=== PATIENT | female | born 1940 | race African-American/Black ===

== ENCOUNTER 2016-05-01 06:12 | Day surgery (SDC) | payer MEDICARE, OTHER ==
[~2016-05-01 06:12] MED LIST: KETOROLAC TROMETHAMINE 0.45% 4 DROP/0.4 ML DROPERETTE OD PRN
[2016-05-01] MEDS: CYCLOPENTOLATE 0.2%/PHENYLEPHRINE 1% OPH SOLN 2 ML OD PRN ×3 (06:49→07:09)
[2016-05-01] MEDS: BESIFLOXACIN HCL 0.6% OPH SUSP 5 ML BOTTLE OD PRN ×4 (06:49→08:08)
[2016-05-01] MEDS: TROPICAMIDE 1% OPH SOLN 3 ML OD PRN ×3 (06:49→07:09)
[2016-05-01] MEDS: TETRACAINE HCL 0.5% OPH SOLN 2 ML OD PRN ×3 (06:50→07:39)
[2016-05-01] MEDS ORDERED: LIDOCAINE 1% INJ-PF (10 MG/ML) 30 ML SDV ONE (07:10)
[2016-05-01] MEDS ORDERED: EPINEPHRINE INJ/PF 1 MG/1 ML AMPULE ONE (07:10)
[2016-05-01] MEDS ORDERED: CHONDR SU A NA/HYALUR INTRAOC KIT (SURGICARE) ONE (07:11)
[2016-05-01] MEDS ORDERED: MIDAZOLAM 2 MG/2 ML INJ ONE (07:20)
[2016-05-01] MEDS ORDERED: POVIDONE-IODINE 5% OPH PREP SOLN 30 ML ONE (07:51)
--- NOTE | 2016-05-02 07:18 | [facility] OPERATIVE REPORT E ---
[facility] Operative Report NAME: BRITTANY REYES AGE: 76Y DATE OF SURGERY: ROOM: PREOPERATIVE DIAGNOSIS: CATARACT, RIGHT EYE. POSTOPERATIVE DIAGNOSIS: CATARACT, RIGHT EYE. OPERATION: Cataract extraction with intraocular lens implant of the right eye. SURGEON: MIKEY REYNOLDS M.D. ANESTHESIA: Topical. PROCEDURE: After obtaining appropriate consent, the patient's right eye was prepped and draped in sterile fashion as well as the surgeon in a sterile manner and cataract surgery was started. First a paracentesis blade was used to make a small side-port incision. Viscoelastic was used to inflate the anterior chamber. Next a 2.4 mm incision was made with the paracentesis blade. A continuous capsulorrhexis incision was made using a cystotome and Utrata forceps. Following this hydrodissection was carried out to make the lens fully loose and mobile and it was rotated 90 degrees. Following this, a vsrrse-omg-ohktzlc technique was used to phacoemulsify the lens with a CDE of 7.82. The remaining cortex was removed with irrigation/aspiration. Provisc was instilled into the capsular bag to inflate the bag. A SN60WF, 22.5 SN60WF diopter lens was placed. The remaining viscoelastic material was removed with irrigation/aspiration. Following this, a 10-0 nylon suture was used to close the incision and it was found to be watertight. Vigamox was instilled in the eye and a protective shield was placed over the eye. The patient returned to the postoperative recovery in stable condition. DICTATING PHYSICIAN: MIKEY REYNOLDS M.D. [id number] PHY#: [id number] ID: [id number] JOB#: [id number] ACCT: [id number] cc:MIKEY REYNOLDS M.D. >
--- NOTE | 2016-05-02 07:23 | DISCHARGE SUMMARY E ---
Discharge Summary NAME: BRITTANY REYES : 1940 AGE: 76Y ADMITTED: 05/01/2016 DISCHARGED: 05/01/2016 FINAL DIAGNOSIS: Cataract right eye. This is a 76-year-old female who underwent cataract extraction of the right eye. She underwent surgery because she is having difficulty reading medicine bottles and newspaper. She should be on a regular diet. No bending at the waist, no heavy lifting. She should use her Besivance, Ilevro, and Durezol at 3 p.m. and 8 p.m. and sleep with a rigid shield. I will see her for her 1 day postoperative tomorrow. DICTATING PHYSICIAN: MIKEY REYNOLDS M.D. [id number] PHY#: [id number] ID: [id number] JOB#: [id number] ACCT: [id number] cc:MIKEY REYNOLDS M.D. >
== END 2016-05-01 08:52 | disposition home or self-care (01) ==
LOC: SC 06:12
PROVIDERS: ATTEND Internal Medicine
PROC: 08RJ3JZ Replacement of Right Lens with Synthetic Substitute, Percutaneous Approach (ICD-10-PCS; principal; 2016-05-01 07:30)
DX: H25.13 Age-related nuclear cataract, bilateral (principal); I10 Essential (primary) hypertension; E11.9 Type 2 diabetes mellitus without complications; I48.91 Unspecified atrial fibrillation; Z79.899 Other long term (current) drug therapy; Z79.84 Long term (current) use of oral hypoglycemic drugs; Z86.711 Personal history of pulmonary embolism
CPT/HCPCS: 66984; 82962; V2632; J2250; J3490 ×3; A9270; J0171; 142

== ENCOUNTER 2016-05-25 00:24 | Emergency (ER) | payer MEDICARE, OTHER ==
[2016-05-25] MEDS ORDERED: TRAMADOL HCL 50 MG TABLET PO ONE (03:11)
--- NOTE | 2016-05-25 03:43 | ER Document Report ---
ED General - General Chief Complaint: Wrist Pain Stated Complaint: RIGHT WRIST PAIN Notes: Patient seen 76 old female presents with complaint of right wrist pain and hand pain. She says starts night. No recent injuries. 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 She's currently not on blood thinners. She's had no discoloration of her hand. No swelling. No redness. Over the last 2 days she did recently start having physical therapy which does involve her hands. She has home health that comes ti her house and does do therapy with her. No chest pain. No difficulty breathing. TRAVEL OUTSIDE OF THE [place] IN LAST 30 DAYS: No - Related Data Allergies/Adverse Reactions: No Known Allergies Allergy (Verified 05/25/16 00:51) Past Medical History - Social History Smoking Status: Unknown if Ever Smoked Frequency of alcohol use: None Drug Abuse: None Family History: Reviewed & Not Pertinent - Past Medical History Cardiac Medical History: Reports: Hx Hypertension Denies: Hx Heart Attack Pulmonary Medical History: Denies: Hx Asthma Neurological Medical History: Denies: Hx Cerebrovascular Accident, Hx Seizures Renal/ Medical History: Denies: Hx Peritoneal Dialysis GI Medical History: Denies: Hx Hepatitis, Hx Hiatal Hernia, Hx Ulcer Infectious Medical History: Denies: Hx Hepatitis Past Surgical History: Reports: Hx Hysterectomy. Denies: Hx Mastectomy, Hx Open Heart Surgery, Hx Pacemaker Review of Systems - Review of Systems Notes: My Normal Review Basic REVIEW OF SYSTEMS: CONSTITUTIONAL : Denies fever, chills, or sweats. Denies recent illness. EENT: Denies eye, ear, throat, or mouth pain or symptoms. Denies nasal or sinus congestion. CARDIOVASCULAR: Denies chest pain. RESPIRATORY: Denies cough, cold, or chest congestion. Denies shortness of breath, difficulty breathing, or wheezing. GASTROINTESTINAL: Denies abdominal pain. Denies nausea, vomiting, or diarrhea. Denies constipation. Last BM: GENITOURINARY: Denies difficulty urinating, painful urination, burning, frequency, or blood in urine. MUSCULOSKELETAL: Pain of her right wrist and hand. SKIN: Denies rash or skin lesions. NEUROLOGICAL: Denies altered mental status or loss of consciousness. Denies weakness or paralysis or loss of use of either side. Denies problems with gait or speech. Denies sensory or motor loss. PSYCHIATRIC: Denies anxiety or stress or depression. ALL OTHER SYSTEMS REVIEWED AND NEGATIVE. Physical Exam - Vital signs Vitals: Temp Pulse Resp BP Pulse Ox 98.2 F 69 16 145/56 H 100 05/25/16 00:51 05/25/16 00:51 05/25/16 00:51 05/25/16 00:51 05/25/16 00:51 - Notes Notes: General Appearance: Well nourished, alert, cooperative, no acute distress, mild to moderate obvious discomfort. Vitals: reviewed, See vital signs table. Head: no swelling or tenderness to the head Eyes: PERRL, EOMI, Conjuctiva clear Neck: Supple, no neck tenderness, No thyromegaly Lungs: No wheezing, No rales, No rhonci, No accessory muscle use, good air exchange bilaterally. Heart: Normal rate, Regular rythm, No murmur, no rub Extremities: strength 5/5 in all extremities, good pulses in all extremities, no swelling or redness to the wrist or hand. Patient does have pain to palpation of the right wrist and hand. She has full range of motion of the right wrist but does have some pain when moving the right wrist. It is not stiff. She has no pain over the elbow or shoulder or arm. This no swelling or edema to extremity. She has good pulses. Good cap refill. Good distal sensation in all fingers., no edema. Skin: warm, dry, appropriate color, no rash Neuro: speech clear, oriented x 3, normal affect, responds appropriately to questions. Course - Re-evaluation Re-evalutation: 05/25/16 06:01 The pain medicine did help the patient's pain some. I will place her in a splint. We'll discharge her home with some pain medication. Will have her follow closely with her primary care doctor for reevaluation. This no redness or swelling or signs of infection on exam. She is good pulses and good capillary refill. She has no swelling or edema to suggest a type of arterial venous occlusion. The pain is only in her wrist and hand. I do not suspect a DVT of the upper extremity based on location of her pain and exacerbating factors to the pain including palpation and range of motion of the wrist. I suspect the pain may be related to the fact that she just recently started doing physical therapy which included their pain involving her hand and wrist. Patient encouraged return to ER immediately if she has any redness or swelling to the hand and wrist, fevers, or she has any further concerns. Patient agrees with plan and will be discharged home. Dictation of this chart was performed using voice recognition software; therefore, there may be some unintended grammatical errors. - Vital Signs Vital signs: Temp Pulse Resp BP Pulse Ox 98.2 F 69 16 145/56 H 100 05/25/16 00:51 05/25/16 00:51 05/25/16 00:51 05/25/16 00:51 05/25/16 00:51 Discharge - Discharge Clinical Impression: Wrist pain Qualifiers: Laterality: right Qualified Code(s): M25.531 - Pain in right wrist Hand pain Qualifiers: Laterality: right Qualified Code(s): M79.641 - Pain in right hand Condition: Good Disposition: HOME, SELF-CARE Instructions: Oral Narcotic Medication ([facility]) Additional Instructions: Please continue to wear the splint on your wrist. Please take the pain medicine to help with the pain. Do not drive when taking the pain medicine. Please take a week break from any physical therapy on your wrist. Please follow up with your doctor in 2-3 days to be revaluated. Please return to the ER immediately if you develop worsening pain, redness to the wrist, or swelling to the wrist. Prescriptions: Tramadol HCl [Ultram 50 mg Tablet] 50 mg PO Q6HP PRN #14 tablet PRN Reason: Referrals: KELSIE BAUM MD [Primary Care Provider] - 05/26/16
[2016-05-25 06:58] VITALS: BP 140/51
== END 2016-05-25 05:10 | disposition home or self-care (01) ==
LOC: ER 00:24
DX: M25.531 Pain in right wrist (principal); M79.641 Pain in right hand
CPT/HCPCS: 99283; 73130; 73110; L3984; A9270

== ENCOUNTER 2016-05-29 07:10 | Day surgery (SDC) | payer MEDICARE, OTHER ==
[2016-05-29] MEDS: CYCLOPENTOLATE 0.2%/PHENYLEPHRINE 1% OPH SOLN 2 ML OS PRN ×3 (07:52→08:13)
[2016-05-29] MEDS: BESIFLOXACIN HCL 0.6% OPH SUSP 5 ML BOTTLE OS PRN ×4 (07:52→08:39)
[2016-05-29] MEDS: TROPICAMIDE 1% OPH SOLN 3 ML OS PRN ×3 (07:52→08:13)
[2016-05-29] MEDS: TETRACAINE HCL 0.5% OPH SOLN 2 ML OS PRN ×3 (07:53→08:28)
[2016-05-29] MEDS: KETOROLAC TROMETHAMINE 0.45% 4 DROP/0.4 ML DROPERETTE OS PRN ×2 (07:53→09:37)
[2016-05-29] MEDS ORDERED: MIDAZOLAM 2 MG/2 ML INJ ONE (08:30)
[2016-05-29] MEDS ORDERED: ONDANSETRON HCL INJ/PF 4 MG/2 ML SDV ONE (08:30)
[2016-05-29] MEDS: LIDOCAINE 1% INJ-PF (10 MG/ML) 30 ML SDV ONE ×2 (08:39)
[2016-05-29] MEDS: CHONDR SU A NA/HYALUR INTRAOC KIT (SURGICARE) ONE ×2 (08:39)
[2016-05-29] MEDS: EPINEPHRINE INJ/PF 1 MG/1 ML AMPULE ONE ×2 (08:39)
--- NOTE | 2016-05-29 20:53 | [facility] DISCHARGE SUMMARY E ---
[facility] Discharge Summary NAME: BRITTANY REYES AGE: 76Y ADMITTED: 05/29/2016 DISCHARGED: 05/29/2016 HISTORY OF PRESENT ILLNESS AND HOSPITAL COURSE: This is a 76-year-old female who underwent cataract extraction of the left eye. DIAGNOSIS: Cataract, left eye. HOSPITAL COURSE: She underwent surgery because she was having difficulty reading small print like medicine bottles. DISCHARGE INSTRUCTIONS: 1. She needs to be on a regular diet. 2. No bending her waist and no heavy lifting. 3. She should sleep with a rigid shield. 4. I will see her for her one-day postoperative tomorrow. DICTATING PHYSICIAN: MIKYE REYNOLDS M.D. [id number] PHY#: [id number] ID: [id number] JOB#: [id number] ACCT: [id number] cc:MIKEY REYNOLDS M.D. >
--- NOTE | 2016-05-29 20:54 | [facility] OPERATIVE REPORT E ---
[facility] Operative Report NAME: BRITTANY REYES AGE: 76Y DATE OF SURGERY: 05/29/2016 ROOM: PREOPERATIVE DIAGNOSIS: Cataract, left eye. POSTOPERATIVE DIAGNOSIS: Cataract, left eye. OPERATION: Cataract extraction with intraocular lens implant of the left eye. SURGEON: MIKEY REYNOLDS M.D. ANESTHESIA: Topical. PROCEDURE: After obtaining appropriate consent, the patient's left eye was prepped and draped in sterile fashion as well as the surgeon in a sterile manner and cataract surgery was started. First a paracentesis blade was used to make a small side-port incision. Viscoelastic was used to inflate the anterior chamber. Next a 2.4 mm incision was made with the paracentesis blade. A continuous capsulorrhexis incision was made using a cystotome and Utrata forceps. Following this hydrodissection was carried out to make the lens fully loose and mobile and it was rotated 90 degrees. Following this, a dfldem-gnx-bgzybou technique was used to phacoemulsify the lens with a CDE of 7.86. The remaining cortex was removed with irrigation/aspiration. Provisc was instilled into the capsular bag to inflate the bag. A SN60WF, 21.0 diopter lens was placed. The remaining viscoelastic material was removed with irrigation/aspiration. Following this, a 10-0 nylon suture was used to close the incision and it was found to be watertight. Vigamox was instilled in the eye and a protective shield was placed over the eye. The patient returned to the postoperative recovery in stable condition. DICTATING PHYSICIAN: MIKEY REYNOLDS M.D. [id number] PHY#: [id number] ID: [id number] JOB#: [id number] ACCT: [id number] cc:MIKEY REYNOLDS M.D. >
== END 2016-05-29 09:42 | disposition home or self-care (01) ==
LOC: SC 07:10
PROVIDERS: ATTEND Internal Medicine
PROC: 08RJ3JZ Replacement of Right Lens with Synthetic Substitute, Percutaneous Approach (ICD-10-PCS; principal; 2016-05-29 08:30)
DX: H25.12 Age-related nuclear cataract, left eye (principal); Z96.1 Presence of intraocular lens; I10 Essential (primary) hypertension; E11.9 Type 2 diabetes mellitus without complications; I48.91 Unspecified atrial fibrillation; Z79.899 Other long term (current) drug therapy
CPT/HCPCS: 66984; 82962; V2632; J2250; J3490 ×2; A9270; J0171; J2405; 142

== ENCOUNTER 2016-11-16 21:11 | Emergency (ER) | payer MEDICARE, OTHER ==
--- NOTE | 2016-11-16 22:29 | ER Document Report ---
ED GI/ - General Chief Complaint: Constipation Stated Complaint: ANAL BLEEDING Time Seen by Provider: 11/16/16 22:08 Notes: Patient is a 76-year-old female who comes emergency department for chief complaint of constipation. She states that 2 days ago she had a hard bowel movement with small balls. She states that she used to glycerin suppositories during the day today but has not had a bowel movement. She states she was straining a little bit on the toilet and had a little bit of blood come out, she has had no bleeding since. She is on Pradaxa. She denies abdominal pain, vomiting, fever. TRAVEL OUTSIDE OF THE [place] IN LAST 30 DAYS: No - Related Data Allergies/Adverse Reactions: No Known Allergies Allergy (Verified 11/16/16 21:36) Past Medical History - General Information source: Patient - Social History Smoking Status: Never Smoker Frequency of alcohol use: None Drug Abuse: None Lives with: Family Family History: Reviewed & Not Pertinent Patient has suicidal ideation: No Patient has homicidal ideation: No - Past Medical History Cardiac Medical History: Reports: Hx Hypertension Denies: Hx Heart Attack Pulmonary Medical History: Denies: Hx Asthma Neurological Medical History: Denies: Hx Cerebrovascular Accident, Hx Seizures Renal/ Medical History: Denies: Hx Peritoneal Dialysis GI Medical History: Denies: Hx Hepatitis, Hx Hiatal Hernia, Hx Ulcer Infectious Medical History: Denies: Hx Hepatitis Past Surgical History: Reports: Hx Hysterectomy. Denies: Hx Mastectomy, Hx Open Heart Surgery, Hx Pacemaker Review of Systems - Review of Systems Constitutional: No symptoms reported EENT: No symptoms reported Cardiovascular: No symptoms reported Respiratory: No symptoms reported Gastrointestinal: See HPI Genitourinary: No symptoms reported Female Genitourinary: No symptoms reported Musculoskeletal: No symptoms reported Skin: No symptoms reported Hematologic/Lymphatic: No symptoms reported Neurological/Psychological: No symptoms reported Physical Exam - Vital signs Vitals: Temp Pulse Resp BP Pulse Ox 98.6 F 73 16 151/66 H 98 11/16/16 21:31 11/16/16 21:31 11/16/16 21:31 11/16/16 21:31 11/16/16 21:31 Interpretation: Normal - General General appearance: Appears well, Alert In distress: None - HEENT Head: Normocephalic, Atraumatic Eyes: Normal Pupils: PERRL - Respiratory Respiratory status: No respiratory distress Chest status: Nontender Breath sounds: Normal Chest palpation: Normal - Cardiovascular Rhythm: Regular. No: Tachycardia Heart sounds: Normal auscultation, S1 appreciated, S2 appreciated Murmur: No - Abdominal Inspection: Normal Distension: No distension Bowel sounds: Normal Tenderness: Nontender. No: Tender, Guarding Organomegaly: No organomegaly - Rectal Stool: No: Black, Bloody Hemorrhoids: None Notes: Christiane KRUGER present at bedside during examination and disimpaction of the fecal impaction noted on examination. - Back Back: Normal, Nontender - Extremities General upper extremity: Normal inspection, Nontender, Normal color, Normal ROM , Normal temperature General lower extremity: Normal inspection, Nontender, Normal color, Normal ROM , Normal temperature, Normal weight bearing. No: Lele's sign - Neurological Neuro grossly intact: Yes Cognition: Normal Orientation: AAOx4 [place] Coma Scale Eye Opening: Spontaneous [place] Coma Scale Verbal: Oriented [place] Coma Scale Motor: Obeys Commands [place] Coma Scale Total: 15 Speech: Normal Motor strength normal: LUE, RUE, LLE, RLE Sensory: Normal - Psychological Associated symptoms: Normal affect, Normal mood - Skin Skin Temperature: Warm Skin Moisture: Dry Skin Color: Normal Course - Re-evaluation Re-evalutation: Digital examination of the rectum performed, patient with a fecal impaction obvious on exam. No bleeding noted, on patient's request and compliance patient was digitally disimpacted of the large fecal ball that was preventing her bowel movements. A large ball of stool was removed. I offered to perform an x-ray to see if patient needed additional interventions, she declined. She is very grateful for this. She states she has had this once before and had the same solution. She states she has a stool softener she will be taking at home, she states she will follow-up with her primary return for any worsening symptoms. - Vital Signs Vital signs: Temp Pulse Resp BP Pulse Ox 98 F 68 16 136/57 H 100 11/16/16 23:01 11/16/16 23:01 11/16/16 23:01 11/16/16 23:01 11/16/16 23:01 Discharge - Discharge Clinical Impression: Fecal impaction Condition: Stable Disposition: HOME, SELF-CARE Additional Instructions: Please take your stool softener daily, drink plenty of fluids, increase fiber in your food. Follow-up with your primary care provider. Return to the emergency department immediately if he develop any concerning symptoms including heavy bleeding, abdominal pain, vomiting, fever, etc. Referrals: STACEY DICKEY, [Primary Care Provider] - Follow up as needed
[2016-11-16 23:03] VITALS: BP 136/57
== END 2016-11-16 23:02 | disposition home or self-care (01) ==
LOC: ER 21:11
DX: K56.41 Fecal impaction (principal); I10 Essential (primary) hypertension
CPT/HCPCS: 99283

== ENCOUNTER 2016-11-17 12:05 | Emergency (ER) | payer MEDICARE, OTHER ==
[2016-11-17] MEDS ORDERED: LIDOCAINE 2% JELLY 30 ML TUBE TOP ONE (12:33)
--- NOTE | 2016-11-17 12:35 | ER Document Report ---
ED Medical Screen (RME) - General Chief Complaint: Constipation Stated Complaint: BOWEL ISSUES Time Seen by Provider: 11/17/16 12:21 Mode of Arrival: Ambulatory Information source: Patient Notes: 76-year-old female presents with complaints of constipation , rectal bleeding post impaction reduction last night I have greeted and performed a rapid initial assessment of this patient. A comprehensive ED assessment and evaluation of the patient, analysis of test results and completion of the medical decision making process will be conducted by additional ED providers. PHYSICAL EXAMINATION: GENERAL: Well-appearing, well-nourished and in no acute distress. HEAD: Atraumatic, normocephalic. EYES: Pupils equal round extraocular movements intact, conjunctiva are normal. ENT: Nares patent NECK: Normal range of motion LUNGS: No respiratory distress Musculoskeletal: Normal range of motion NEUROLOGICAL: Normal speech, normal gait. PSYCH: Normal mood, normal affect. SKIN: Warm, Dry, normal turgor, no rashes or lesions noted. TRAVEL OUTSIDE OF THE [place] IN LAST 30 DAYS: No - Related Data Allergies/Adverse Reactions: No Known Allergies Allergy (Verified 11/17/16 12:22) Past Medical History - Social History Chew tobacco use (# tins/day): No Frequency of alcohol use: None Drug Abuse: None - Past Medical History Cardiac Medical History: Reports: Hx Hypertension Denies: Hx Heart Attack Pulmonary Medical History: Denies: Hx Asthma Neurological Medical History: Denies: Hx Cerebrovascular Accident, Hx Seizures Endocrine Medical History: Reports: Hx Diabetes Mellitus Type 1 Renal/ Medical History: Denies: Hx Peritoneal Dialysis GI Medical History: Denies: Hx Hepatitis, Hx Hiatal Hernia, Hx Ulcer Infectious Medical History: Denies: Hx Hepatitis Past Surgical History: Reports: Hx Hysterectomy. Denies: Hx Mastectomy, Hx Open Heart Surgery, Hx Pacemaker Physical Exam - Vital signs Vitals: Temp Pulse Resp BP Pulse Ox 98.5 F 103 H 18 117/73 100 11/17/16 12:08 11/17/16 12:08 11/17/16 12:08 11/17/16 12:08 11/17/16 12:08 Course - Vital Signs Vital signs: Temp Pulse Resp BP Pulse Ox 98.5 F 103 H 18 117/73 100 11/17/16 12:08 11/17/16 12:08 11/17/16 12:08 11/17/16 12:08 11/17/16 12:08
--- NOTE | 2016-11-17 13:15 | ER Document Report ---
ED GI/ - General Mode of Arrival: Ambulatory Information source: Patient TRAVEL OUTSIDE OF THE [place] IN LAST 30 DAYS: No - HPI Patient complains to provider of: Other - constipation Onset: Other - x2 days Timing/Duration: Persistent - General Chief Complaint: Constipation Stated Complaint: BOWEL ISSUES Time Seen by Provider: 11/17/16 12:21 Notes: Patient is a 76-year-old female who presents to the emergency department today with complaints of constipation for the last 2 days. Patient was seen here yesterday for rectal bleeding and constipation. Patient had a manual disimpaction which relieved her symptoms somewhat. Patient states that when she got home she was able to pass "a little bit of stool" but still feels like there is a large amount of stool "right there". Patient states she has tried multiple stool softeners at home with minimal relief. Patient denies any vomiting. (ALEE [place]) - Related Data Allergies/Adverse Reactions: No Known Allergies Allergy (Verified 11/17/16 12:22) Past Medical History - General Information source: Patient - Social History Smoking Status: Never Smoker Cigarette use (# per day): No Chew tobacco use (# tins/day): No Frequency of alcohol use: None Drug Abuse: None Lives with: Family Family History: Reviewed & Not Pertinent - Past Medical History Cardiac Medical History: Reports: Hx Hypertension Endocrine Medical History: Reports: Hx Diabetes Mellitus Type 1 Past Surgical History: Reports: Hx Hysterectomy Review of Systems - Review of Systems Constitutional: No symptoms reported EENT: No symptoms reported Cardiovascular: No symptoms reported Respiratory: No symptoms reported Gastrointestinal: See HPI, Constipation. denies: Vomiting Genitourinary: No symptoms reported Female Genitourinary: No symptoms reported Musculoskeletal: No symptoms reported Skin: No symptoms reported Hematologic/Lymphatic: No symptoms reported Neurological/Psychological: No symptoms reported -: Yes All other systems reviewed and negative Physical Exam - Vital signs Vitals: Temp Pulse Resp BP Pulse Ox 98.5 F 103 H 18 117/73 100 11/17/16 12:08 11/17/16 12:08 11/17/16 12:08 11/17/16 12:08 11/17/16 12:08 - Notes Notes: PHYSICAL EXAM GENERAL: Alert, interacts well. Appears mildly uncomfortable. HEAD: Normocephalic, atraumatic. EYES: Pupils equal, round, and reactive to light. Extraocular movements intact. ENT: Oral mucosa moist, tongue midline. NECK: Full range of motion. Supple. Trachea midline. LUNGS: No respiratory distress. ABDOMEN: Non-distended. RECTAL: Large amount of semi-firm stool in rectal vault. No gross blood. EXTREMITIES: Moves all 4 extremities spontaneously. No cyanosis. NEUROLOGICAL: Alert and oriented x3. Normal speech. PSYCH: Normal affect, normal mood. SKIN: Warm, dry, normal turgor. No rashes or lesions noted. (ALEE [place]) Course - Re-evaluation Re-evalutation: 11/17/16 14:25 After enema patient had a large bowel movement. Feeling much better. Still has some rectal pain. Discharged home with lidocaine jelly. Patient will apply this topically. Started on MiraLAX to prevent re-constipation. Discharged home. 11/17/16 14:27 (KVNG CULP) - Vital Signs Vital signs: Temp Pulse Resp BP Pulse Ox 98.2 F 78 15 136/74 H 98 11/17/16 15:58 11/17/16 15:58 11/17/16 15:58 11/17/16 15:58 11/17/16 15:58 Discharge - Discharge Clinical Impression: Fecal impaction, Rectal pain Constipation Qualifiers: Constipation type: unspecified constipation type Qualified Code(s): K59.00 - Constipation, unspecified Condition: Stable Disposition: HOME, SELF-CARE Additional Instructions: I expect your rectal pain to improve in the next few days. You may continue to apply the lidocaine jelly for pain relief. It may also help to use witch jose guadalupe wipes. Please dissolve 1 scoop of MiraLAX in a glass of water once a day to treat constipation. You may increase to twice a day if needed to create soft bowel movements and you may decrease to every other day if you develop diarrhea. Scribe Attestation: 11/17/16 16:10 I personally performed the services described in the documentation, reviewed and edited the documentation which was dictated to the scribe in my presence, and it accurately records my words and actions. (KVNG CULP) Scribe Documentation - Scribe Written by Scrlesliee:: Alee Austin, Johnny, 11/17/2016 [id number] acting as scribe for :: Stephanie
[2016-11-17] MEDS ORDERED: MAGNESIUM CITRATE 296 ML BOTTLE PO ONE (13:18)
[2016-11-17] MEDS ORDERED: MINERAL OIL ENEMA 133 ML PR ONE (13:18)
--- NOTE | 2016-11-17 13:21 | RADIOLOGY REPORT (SQ) ---
EXAM DESCRIPTION: ACUTE ABDOMEN SERIES COMPLETED DATE/TIME: 11/17/2016 12:45 pm REASON FOR STUDY: constipation COMPARISON: None. NUMBER OF VIEWS: Three views. TECHNIQUE: Frontal chest, supine abdomen and upright abdomen radiographic images acquired. LIMITATIONS: None. FINDINGS: CHEST: Bandlike atelectasis at both lung bases. No fluffy alveolar infiltrates worrisome for edema or pneumonia. No pleural effusion. No pneumothorax. FREE AIR: None. No abnormal gas collections. BOWEL GAS PATTERN: Nonobstructive pattern. No dilated loops or air fluid levels. Small amount of sto ol in the rectosigmoid and descending colon. CALCIFICATIONS: No suspicious calcifications. HARDWARE: None in the abdomen. SOFT TISSUES: No gross mass or suggestion of organomegaly. BONES: No acute fracture. No worrisome bone lesions. OTHER: No other significant finding. IMPRESSION: Bibasilar atelectasis Grossly nonobstructive bowel gas pattern. TECHNICAL DOCUMENTATION: JOB ID: [id number]- All Rights Reserved
--- NOTE | 2016-11-17 15:35 | RADIOLOGY REPORT (SQ) ---
EXAM DESCRIPTION: KUB/ABDOMEN (SINGLE VIEW)/ portable COMPLETED DATE/TIME: 11/17/2016 2:36 pm REASON FOR STUDY: post enema, check for change in stool pattern COMPARISON: 11/17/2016, 1252 hours NUMBER OF VIEWS: One view. TECHNIQUE: Supine radiographic image of the abdomen acquired. LIMITATIONS: None. FINDINGS: BOWEL GAS PATTERN: Nonobstructive bowel pattern. Some decrease air and fecal material lef t colon since prior study. CALCIFICATIONS: No suspicious calcifications. SOFT TISSUES: Soft tissue density anatomic pelvis. Consider distended urinary bladder or other organ enlargement. HARDWARE: None in the abdomen. BONES: No acute fracture. No worrisome bone lesions. OTHER: No other significant finding. IMPRESSION: Nonobstructive bowel pattern. Decrease air and fecal material left colon since prior st udy. TECHNICAL DOCUMENTATION: JOB ID: [id number] [id number]- All Rights Reserved
[2016-11-17 15:59] VITALS: BP 136/74
== END 2016-11-17 15:59 | disposition home or self-care (01) ==
LOC: ER 12:05
DX: K56.41 Fecal impaction (principal); K62.89 Other specified diseases of anus and rectum; K59.00 Constipation, unspecified
CPT/HCPCS: 99283; 74022; 74000; J3490 ×2

== ENCOUNTER 2017-02-13 14:36 | Emergency (ER) | payer MEDICARE, OTHER ==
[2017-02-13] MEDS ORDERED: CEPHALEXIN 500 MG CAPSULE PO ONE (15:12)
--- NOTE | 2017-02-13 15:32 | ER Document Report ---
ED Medical Screen (RME) - General Mode of Arrival: Ambulatory Information source: Patient TRAVEL OUTSIDE OF THE [place] IN LAST 30 DAYS: No <DONNA BATEMAN - Last Filed: 02/13/17 15:52> <KVNG CULP - Last Filed: 02/13/17 16:33> - General Chief Complaint: Swelling of Lower Extremity Stated Complaint: LEFT FOOT PAIN Time Seen by Provider: 02/13/17 15:05 Notes: Patient is a 76 year old female presenting to the emergency department complaining of swelling in the lower left leg onset 2 days ago. Patient states that she has a similar bump on her right arm. Patient states that she has a history of blood clots. I have greeted and performed a rapid initial assessment of this patient. A comprehensive ED assessment and evaluation of the patient, analysis of test results and completion of the medical decision making process will be conducted by additional ED providers. (DONNA BATEMAN) - Related Data Allergies/Adverse Reactions: No Known Allergies Allergy (Verified 02/13/17 14:37) Past Medical History - Social History Chew tobacco use (# tins/day): No Frequency of alcohol use: None Drug Abuse: None - Past Medical History Cardiac Medical History: Reports: Hx Hypertension Denies: Hx Heart Attack Pulmonary Medical History: Denies: Hx Asthma Neurological Medical History: Denies: Hx Cerebrovascular Accident, Hx Seizures Endocrine Medical History: Reports: Hx Diabetes Mellitus Type 1 Renal/ Medical History: Denies: Hx Peritoneal Dialysis GI Medical History: Denies: Hx Hepatitis, Hx Hiatal Hernia, Hx Ulcer Infectious Medical History: Denies: Hx Hepatitis Past Surgical History: Reports: Hx Hysterectomy. Denies: Hx Mastectomy, Hx Open Heart Surgery, Hx Pacemaker <DONNA BATEMAN - Last Filed: 02/13/17 15:52> Physical Exam <DONNA BATEMAN - Last Filed: 02/13/17 15:52> <KVNG CULP - Last Filed: 02/13/17 16:33> - Vital signs Vitals: Temp Pulse Resp BP Pulse Ox 98.0 F 82 18 143/66 H 100 02/13/17 14:42 02/13/17 14:42 02/13/17 14:42 02/13/17 14:42 02/13/17 14:42 - Notes Notes: GENERAL: Alert, interacts well. No acute distress. LUNGS: Clear to auscultation bilaterally, no wheezes, rales, or rhonchi. No respiratory distress. HEART: Regular rate and rhythm. No murmurs, gallops, or rubs. EXTREMITIES: Left leg has an area of erythema that is 10cm x 4cm. Left ankle is grossly swollen, not painful to palpation. (DONNA BATEMAN) Course - Laboratory Result Diagrams: 02/13/17 16:15 02/13/17 16:15 <KVNG CULP - Last Filed: 02/13/17 16:33> - Vital Signs Vital signs: Temp Pulse Resp BP Pulse Ox 98.0 F 82 18 143/66 H 100 02/13/17 14:42 02/13/17 14:42 02/13/17 14:42 02/13/17 14:42 02/13/17 14:42 Scribe Documentation - Scribe Written by Scribe:: Johnny Bernardo, 02/13/2017 15:54 acting as scribe for :: Stephanie <DONNA BATEMAN - Last Filed: 02/13/17 15:52>
[2017-02-13 16:33] LABS: ABSOLUTE EOSINOPHILS # (AUTO) 0.3 10^3/uL (0.0-0.6); ABSOLUTE LYMPHOCYTES (AUTO) 1.9 10^3/uL (0.5-4.7); ABSOLUTE MONOCYTES (AUTO) 0.4 10^3/uL (0.1-1.4); ABSOLUTE NEUT (AUTO) 2.8 10^3/uL (1.7-8.2); BASOPHILS % (AUTO) 0.3 % (0-2); EOSINOPHILS % (AUTO) 5.3 % (0-6); HEMATOCRIT 36.1 % (36.0-47.0); HEMOGLOBIN 11.6 g/dL (12.0-15.5); HGB HCT DIFFERENCE -1.3; LYMPHOCYTES % (AUTO) 34.8 % (13-45); MEAN CORPUSCULAR HEMOGLOBIN 26.4 pg (27.0-33.4); MEAN CORPUSCULAR HGB CONC 32.1 g/dL (32.0-36.0); MEAN CORPUSCULAR VOLUME 82 fl (80-97); MONOCYTES % (AUTO) 7.6 % (3-13); RED BLOOD COUNT 4.39 10^6/uL (3.72-5.28); RED CELL DISTRIBUTION WIDTH 12.8 % (11.5-14.0); WHITE BLOOD COUNT 5.3 10^3/uL (4.0-10.5)
[2017-02-13 16:39] LABS: PROTHROMBIN TIME 16.1 SEC (11.4-15.4)
[2017-02-13 16:50] LABS: ALANINE AMINOTRANSFERASE 39 U/L (9-52); ALBUMIN 4.6 g/dL (3.5-5.0); ALKALINE PHOSPHATASE 118 U/L (38-126); ANION GAP 13 (5-19); ASPARTATE AMINO TRANSFERASE 27 U/L (14-36); BILIRUBIN,DIRECT 0.2 mg/dL (0.0-0.4); BILIRUBIN,TOTAL 0.4 mg/dL (0.2-1.3); BLOOD UREA NITROGEN 16 mg/dL (7-20); CALCIUM 10.5 mg/dL (8.4-10.2); CARBON DIOXIDE 27 mmol/L (22-30); CHLORIDE 108 mmol/L (98-107); CREATININE RESULT 0.83 mg/dL (0.52-1.25); GLUCOSE 85 mg/dL (75-110); SODIUM 148.1 mmol/L (137-145); TOTAL PROTEIN 7.6 g/dL (6.3-8.2)
--- NOTE | 2017-02-13 16:51 | ER Document Report ---
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 She said that the rashes are decreasing in size, but they are still itchy. She has started a new detergent. She denies increased swelling, numbness, tingling, difficulty walking, fevers, coughing, difficulty swallowing, wheezing, nausea, vomiting, abdominal pain, recent travel or any other rashes. TRAVEL OUTSIDE OF THE [place] IN LAST 30 DAYS: No - Related Data Allergies/Adverse Reactions: No Known Allergies Allergy (Verified 02/13/17 14:37) Past Medical History - General Information source: Patient - Social History Smoking Status: Never Smoker Chew tobacco use (# tins/day): No Frequency of alcohol use: None Drug Abuse: None Family History: Reviewed & Not Pertinent Patient has suicidal ideation: No Patient has homicidal ideation: No - Past Medical History Cardiac Medical History: Reports: Hx Hypertension Denies: Hx Heart Attack Pulmonary Medical History: Denies: Hx Asthma Neurological Medical History: Denies: Hx Cerebrovascular Accident, Hx Seizures Endocrine Medical History: Reports: Hx Diabetes Mellitus Type 1 Renal/ Medical History: Denies: Hx Peritoneal Dialysis GI Medical History: Denies: Hx Hepatitis, Hx Hiatal Hernia, Hx Ulcer Infectious Medical History: Denies: Hx Hepatitis Past Surgical History: Reports: Hx Hysterectomy. Denies: Hx Mastectomy, Hx Open Heart Surgery, Hx Pacemaker Review of Systems - Review of Systems Notes: REVIEW OF SYSTEMS: CONSTITUTIONAL: -fevers, -chills EENT: -eye pain, -difficulty swallowing, -nasal congestion CARDIOVASCULAR: -chest pain, -syncope. RESPIRATORY: -cough, -SOB GASTROINTESTINAL: -abdominal pain, -nausea, -vomiting, -diarrhea GENITOURINARY: -dysuria, -hematuria MUSCULOSKELETAL: -back pain, -neck pain SKIN: +itchy rash. HEMATOLOGIC: -easy bruising or bleeding. LYMPHATIC: -swollen, enlarged glands. NEUROLOGICAL: -altered mental status or loss of consciousness, -headache, - neurologic symptoms PSYCHIATRIC: -anxiety, -depression. ALL OTHER SYSTEMS REVIEWED AND NEGATIVE. Physical Exam - Vital signs Vitals: Temp Pulse Resp BP Pulse Ox 98.0 F 82 18 143/66 H 100 02/13/17 14:42 02/13/17 14:42 02/13/17 14:42 02/13/17 14:42 02/13/17 14:42 - Notes Notes: PHYSICAL EXAMINATION: GENERAL: Well-appearing, well-nourished and in no acute distress. HEAD: Atraumatic, normocephalic. EYES: Pupils equal round and reactive to light, extraocular movements intact, sclera anicteric, conjunctiva are normal. ENT: nares patent, oropharynx clear without exudates. Moist mucous membranes. NECK: Normal range of motion, supple without lymphadenopathy LUNGS: Breath sounds clear to auscultation bilaterally and equal. No wheezes rales or rhonchi. HEART: Regular rate and rhythm without murmurs ABDOMEN: Soft, nontender, normoactive bowel sounds. No guarding, no rebound. No masses appreciated. EXTREMITIES: Normal range of motion. No cyanosis. Strong distal pulses. NEUROLOGICAL: Cranial nerves grossly intact. Normal speech, normal gait. Normal sensory and motor exams. PSYCH: Normal mood, normal affect. SKIN: Warm, Dry, normal turgor. Left medical calf has an area of erythema that is 10cm x 4cm. Left ankle is mildly swollen, not painful to palpation. Right forearm with a faint 2cm x 1cm pruritic erythemtaous lesion. Course - Re-evaluation Re-evalutation: Patient with 2 small areas of pruritic rash. Blood work and left lower extremity ultrasound ordered from triage do not show any evidence of DVT or any other abnormalities. Instructed patient about beginning hydrocortisone cream and antihistamines as needed. No signs of cellulitis. Will discharge patient home with very strict return precautions. - Vital Signs Vital signs: Temp Pulse Resp BP Pulse Ox 98.0 F 82 18 143/66 H 100 02/13/17 14:42 02/13/17 14:42 02/13/17 14:42 02/13/17 14:42 02/13/17 14:42 - Laboratory Result Diagrams: 02/13/17 16:15 02/13/17 16:15 Laboratory results interpreted by me: 02/13/17 02/13/17 02/13/17 16:15 16:15 16:15 Hgb 11.6 L MCH 26.4 L PT 16.1 H Sodium 148.1 H Chloride 108 H Calcium 10.5 H - Diagnostic Test Radiology reviewed: Image reviewed, Reports reviewed Radiology results interpreted by me: AKIKO Doppler: No DVT (verbal result at time of discharge). Discharge - Discharge Clinical Impression: Pruritic rash Condition: Stable Disposition: HOME, SELF-CARE Additional Instructions: ACUTE ALLERGIC REACTION: Your symptoms are due to an allergic reaction. Allergy can cause hives, swelling of the hands, feet, and face, hoarseness, and difficulty swallowing or breathing. It may be due to exposure to medication, animal dander, foods, infection, or insect bites. Medication is a common cause, even when prior use of this same medication caused no problems. Acute treatment may include adrenalin and antihistamines. Usually, the specific allergic agent can't be identified unless repeated episodes occur. Home treatment includes the following: (1) Stop any suspicious medications. This will be discussed with you. (2) Oral antihistamines for the next four to five days. Example, diphenhydramine (Benadryl) every four hours. (3) You may also use cimetidine (Tagamet), ranitidine (Zantac), or famotidine ( Pepcid) every four hours if diphenhydramine is not controlling itching and hives. (4) Avoid aspirin until the hives completely disappear. (5) Avoid hot baths or showers until the hives are completely gone. Call the doctor if faintness, difficulty swallowing, tightness in the chest , or wheezing occurs. ANTIHISTAMINES: An antihistamine has been given and/or prescribed to control your symptoms. Antihistamines are used for many reasons, including itching, watering eyes, runny nose, allergic swelling, hives, and insect stings. Antihistamines may cause drowsiness, especially with the first dose. Do not operate machinery or drive while under the effects of the medication. Other common side effects include dry mouth and eyes. In older persons, antihistamines can occasionally cause urinary retention, constipation, and trouble focusing the eyes. Do not combine the medication with alcohol, or with any other medication without talking to your doctor. USE OF DIPHENHYDRAMINE: The use of diphenhydramine (Benadryl) has been recommended to control allergic symptoms. The 25 mg strength is available over- the-counter, as well as the elixir. This antihistamine is used for many symptoms. It's useful for itching, watering eyes and nose, allergic swelling, hives, and insect stings. The medication can be repeated four times daily. Age Elixir (12.5 mg/tsp) 25 mg pill 2-3 yr 1/2 tsp 4-8 yr 1 tsp 9-14 yr 2 tsp one tab adult 1-2 tabs Antihistamines may cause drowsiness, especially with the first dose. Do not operate machinery or drive while under the effects of the medication. Do not combine the medication with alcohol, or with any other medication without talking to your doctor. FOLLOW-UP CARE: If you have been referred to a physician for follow-up care, call the physician s office for an appointment as you were instructed or within the next two days. If you experience worsening or a significant change in your symptoms, notify the physician immediately or return to the Emergency Department at any time for re-evaluation. Prescriptions: Hydrocortisone [Hydrocortisone 0.5% Cream 28.35 Gm] 1 applic TP Q8H PRN #1 tube PRN Reason: Forms: Elevated Blood Pressure
[2017-02-13 18:48] VITALS: BP 159/72
--- NOTE | 2017-02-14 13:16 | XCELERA REPORT ---
[address] [address] Lower Extremity Venous Evaluation Name: BRITTANY REYES Age: 76 yrs Gender: Female : 1940 Patient Status: Emergency Patient Location: ER Study Date: 02/13/2017 03:46 PM Procedure: Color flow and duplex imaging of the veins of the left lower extremity as well as the right Common Femoral vein. Reason For Study: left leg swelling, h/o DVT Ordering Physician: KVNG CULP Performed By: Adelina Rosas Right Sided Venous Evaluation The right common femoral vein is fully compressible. Spontaneous and phasic flow is present in the right common femoral vein. Left Sided Venous Evaluation Normal vessel filling wall to wall, compression and augmentation as well as Colour flow down to the infrageniculate veins. Interpretation Summary No duplex evidence of DVT or obstruction in the left lower extremity nor in the right Common Femoral vein. : KVNG CULP > Daimen Ham
== END 2017-02-13 18:46 | disposition home or self-care (01) ==
LOC: ER 14:36
DX: R21 Rash and other nonspecific skin eruption (principal); L29.9 Pruritus, unspecified; M79.89 Other specified soft tissue disorders; M79.672 Pain in left foot; Z86.718 Personal history of other venous thrombosis and embolism; Z79.01 Long term (current) use of anticoagulants
CPT/HCPCS: 99284; 36415; 85025; 85610; 80053; 93971 ×2; A9270

== ENCOUNTER 2017-04-26 14:21 | Emergency (ER) | payer MEDICARE, OTHER ==
[2017-04-26] MEDS ORDERED: ACETAMINOPHEN 325 MG TABLET PO ONE (15:20)
[2017-04-26] MEDS ORDERED: CEPHALEXIN 500 MG CAPSULE PO ONE (15:20)
--- NOTE | 2017-04-26 15:24 | ER Document Report ---
HPI - HPI Onset: This morning Onset/Duration: Gradual Pain Level: 0 Context: Patient is concerned about a possible insect bite to her left forearm. Patient states the area is itchy and starting to swell. Patient denies any fever. Associated Symptoms: denies: Chest pain, Fever, Shortness of breath Exacerbated by: Denies Relieved by: Denies Similar symptoms previously: Yes Recently seen / treated by doctor: No - ROS ROS below otherwise negative: Yes Systems Reviewed and Negative: Yes All other systems reviewed and negative - CONSTITUTIONAL Constitutional: DENIES: Fever, Chills - EENT EENT: DENIES: Sore Throat - CARDIOVASCULAR Cardiovascular: DENIES: Chest pain - RESPIRATORY Respiratory: DENIES: Coughing - GASTROINTESTINAL Gastrointestinal: DENIES: Nausea - MUSCULOSKELETAL Musculoskeletal: REPORTS: Extremity pain, Swelling - DERM Skin Color: Erythema Notes: Insect bite Past Medical History - General Information source: Patient - Social History Smoking Status: Never Smoker Frequency of alcohol use: None Drug Abuse: None Occupation: None Family History: Reviewed & Not Pertinent - Past Medical History Cardiac Medical History: Reports: Hx Atrial Fibrillation, Hx Hypertension Denies: Hx Heart Attack Pulmonary Medical History: Denies: Hx Asthma Neurological Medical History: Denies: Hx Cerebrovascular Accident, Hx Seizures Endocrine Medical History: Reports: Hx Diabetes Mellitus Type 1 Renal/ Medical History: Denies: Hx Peritoneal Dialysis GI Medical History: Denies: Hx Hepatitis, Hx Hiatal Hernia, Hx Ulcer Infectious Medical History: Denies: Hx Hepatitis Past Surgical History: Reports: Hx Hysterectomy. Denies: Hx Mastectomy, Hx Open Heart Surgery, Hx Pacemaker Vertical Provider Document - CONSTITUTIONAL Agree With Documented VS: Yes Exam Limitations: No Limitations General Appearance: WD/WN, No Apparent Distress - INFECTION CONTROL TRAVEL OUTSIDE OF THE [place] IN LAST 30 DAYS: No - HEENT HEENT: Atraumatic, Normal ENT Exam, Normocephalic - NECK Neck: Normal Inspection, Supple. negative: Lymphadenopathy-Left, Lymphadenopathy-Right - RESPIRATORY Respiratory: Breath Sounds Normal, No Respiratory Distress O2 Sat by Pulse Oximetry: 99 - CARDIOVASCULAR Cardiovascular: Regular Rate, Regular Rhythm - BACK Back: Normal Inspection - MUSCULOSKELETAL/EXTREMETIES Musculoskeletal/Extremeties: LAKESHA JORDAN - NEURO Level of Consciousness: Awake, Alert, Appropriate Motor/Sensory: No Motor Deficit - DERM Integumentary: Warm, Dry. negative: Abscess Adult Front & Back Diagram: 1 - Mildly tender, erythematous area surrounding central lesion, no concern for abscess Course - Re-evaluation Re-evalutation: 04/26/17 15:21 Patient presents with symptoms concerning for insect bite with expanding area of erythema. No drainable abscess. No concern for lymphangitis. 04/26/17 15:22 The patient has been informed that they may have pre-hypertension or hypertension based on a blood pressure reading in the emergency department. I recommend that patient call the primary care provider listed on their discharge instructions or a physician of their choice by this week to arrange follow-up for further evaluation of possible pre-hypertension or hypertension. - Vital Signs Vital signs: Temp Pulse Resp BP Pulse Ox 98.0 F 58 L 16 143/55 H 99 04/26/17 14:28 04/26/17 14:28 04/26/17 14:28 04/26/17 14:28 04/26/17 14:28 Discharge - Discharge Clinical Impression: Elevated blood pressure reading Insect bite Qualifiers: Encounter type: initial encounter Qualified Code(s): W57.XXXA - Bitten or stung by nonvenomous insect and other nonvenomous arthropods, initial encounter Condition: Stable Disposition: HOME, SELF-CARE Instructions: Cephalexin ([facility]), Topical Steroid Cream or Ointment ([facility]), Swollen Insect Bite or Sting ([facility]) Additional Instructions: Return immediately for any new or worsening symptoms Followup with your primary care provider, call tomorrow to make a followup appointment Prescriptions: Cephalexin Monohydrate [Keflex 500 mg Capsule] 500 mg PO TID 5 Days capsule Triamcinolone Acetonide [Aristocort 0.1% Cream] 1 applic TP TID #30 gm Forms: Elevated Blood Pressure Referrals: GASTON PEREA MD [Primary Care Provider] - Follow up tomorrow
[2017-04-26 16:54] VITALS: BP 132/84
== END 2017-04-26 15:45 | disposition home or self-care (01) ==
LOC: ER 14:21
DX: S50.862A Insect bite (nonvenomous) of left forearm, initial encounter (principal); W57.XXXA Bitten or stung by nonvenomous insect and other nonvenomous arthropods, initial encounter; R03.0 Elevated blood-pressure reading, without diagnosis of hypertension; I48.91 Unspecified atrial fibrillation; E10.9 Type 1 diabetes mellitus without complications; Z90.710 Acquired absence of both cervix and uterus
CPT/HCPCS: 99281; A9270 ×2

== ENCOUNTER 2017-08-19 17:12 | Emergency (ER) | payer MEDICARE, OTHER ==
[2017-08-19 17:29] VITALS: BP 144/53
--- NOTE | 2017-08-19 17:52 | ER Document Report ---
ED Medical Screen (RME) - General Chief Complaint: Chest Pain Stated Complaint: CHEST PAIN Time Seen by Provider: 08/19/17 17:46 Notes: RAPID MEDICAL EVALUATION DISCLOSURE I have seen this patient as part of a Rapid Medical Evaluation and, if applicable, placed any initially appropriate orders. The patient will be seen and fully evaluated, including a full history and physical exam, by a provider ( in Main ED or Fast Track) when a room becomes available. 77-year-old female here with complaints of midsternal chest pain nonradiating that started approximately 1-1/2 hours ago while she was sitting at the doctor' s office. The pain was not worse with breathing or exertion. She did have some shortness of breath and lightheadedness with it. She was given 4 baby aspirins. She denies any prior history of ID. 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 Exam CTAB RRR TRAVEL OUTSIDE OF THE [place] IN LAST 30 DAYS: No - Related Data Allergies/Adverse Reactions: No Known Allergies Allergy (Verified 08/19/17 17:17) Past Medical History - Social History Chew tobacco use (# tins/day): No Frequency of alcohol use: None Drug Abuse: None - Past Medical History Cardiac Medical History: Reports: Hx Atrial Fibrillation, Hx Hypertension Denies: Hx Heart Attack Pulmonary Medical History: Denies: Hx Asthma Neurological Medical History: Denies: Hx Cerebrovascular Accident, Hx Seizures Endocrine Medical History: Reports: Hx Diabetes Mellitus Type 1 Renal/ Medical History: Denies: Hx Peritoneal Dialysis GI Medical History: Denies: Hx Hepatitis, Hx Hiatal Hernia, Hx Ulcer Infectious Medical History: Denies: Hx Hepatitis Past Surgical History: Reports: Hx Appendectomy, Hx Hysterectomy, Hx Tonsillectomy. Denies: Hx Mastectomy, Hx Open Heart Surgery, Hx Pacemaker Physical Exam - Vital signs Vitals: Temp Pulse Resp BP Pulse Ox 98.5 F 67 16 144/53 H 98 08/19/17 17:28 08/19/17 17:28 08/19/17 17:28 08/19/17 17:28 08/19/17 17:28 Course - Vital Signs Vital signs: Temp Pulse Resp BP Pulse Ox 98.5 F 67 16 144/53 H 98 08/19/17 17:28 08/19/17 17:28 08/19/17 17:28 08/19/17 17:28 08/19/17 17:28 Doctor's Discharge - Discharge Referrals: GASTON PEREA MD [Primary Care Provider] - Follow up as needed
[2017-08-19 18:19] LABS: ABSOLUTE EOSINOPHILS # (AUTO) 0.2 10^3/uL (0.0-0.6); ABSOLUTE LYMPHOCYTES (AUTO) 1.7 10^3/uL (0.5-4.7); ABSOLUTE MONOCYTES (AUTO) 0.4 10^3/uL (0.1-1.4); ABSOLUTE NEUT (AUTO) 2.2 10^3/uL (1.7-8.2); BASOPHILS % (AUTO) 1.1 % (0-2); EOSINOPHILS % (AUTO) 4.4 % (0-6); HEMATOCRIT 35.9 % (36.0-47.0); HEMOGLOBIN 11.9 g/dL (12.0-15.5); LYMPHOCYTES % (AUTO) 37.3 % (13-45); MEAN CORPUSCULAR HEMOGLOBIN 27.6 pg (27.0-33.4); MEAN CORPUSCULAR HGB CONC 33.3 g/dL (32.0-36.0); MEAN CORPUSCULAR VOLUME 83 fl (80-97); MONOCYTES % (AUTO) 9.1 % (3-13); PLATELET COUNT 267 10^3/uL (150-450); RED BLOOD COUNT 4.33 10^6/uL (3.72-5.28); RED CELL DISTRIBUTION WIDTH 13.1 % (11.5-14.0); SEGMENTED NEUTROPHILS % (AUTO) 48.1 % (42-78); TOTAL CELLS COUNTED % (AUTO) 100 %; WHITE BLOOD COUNT 4.6 10^3/uL (4.0-10.5)
--- NOTE | 2017-08-19 18:22 | RADIOLOGY REPORT (SQ) ---
EXAM DESCRIPTION: CHEST 2 VIEWS COMPLETED DATE/TIME: 08/19/2017 6:14 pm REASON FOR STUDY: CP SOB COMPARISON: None. EXAM PARAMETERS: NUMBER OF VIEWS: two views TECHNIQUE: Digital Frontal and Lateral radiographic views of the chest acquired. RADIATION DOSE: NA LIMITATIONS: none FINDINGS: LUNGS AND PLEURA: Basilar scarring. No acute opacities. No effusions. MEDIASTINUM AND HILAR STRUCTURES: No masses or contour abnormalities. HEART AND VASCULAR STRUCTURES: Heart normal size. No evidence for failure. BONES: No acute findings. HARDWARE: None in the chest. OTHER: No other significant finding. IMPRESSION: Scarring. No acute abnormality. TECHNICAL DOCUMENTATION: JOB ID: [id number] [employer]- All Rights Reserved Reading location - IP/workstation name: [email or web address]
[2017-08-19 18:28] LABS: ALANINE AMINOTRANSFERASE 39 U/L (9-52); ALBUMIN 4.4 g/dL (3.5-5.0); ALKALINE PHOSPHATASE 98 U/L (38-126); ANION GAP 11 (5-19); ASPARTATE AMINO TRANSFERASE 32 U/L (14-36); BILIRUBIN,DIRECT 0.3 mg/dL (0.0-0.4); BILIRUBIN,TOTAL 0.4 mg/dL (0.2-1.3); BLOOD UREA NITROGEN 15 mg/dL (7-20); CALCIUM 9.5 mg/dL (8.4-10.2); CARBON DIOXIDE 26 mmol/L (22-30); CHLORIDE 110 mmol/L (98-107); GLUCOSE 98 mg/dL (75-110); POTASSIUM 4.2 mmol/L (3.6-5.0); SODIUM 147.2 mmol/L (137-145); TOTAL PROTEIN 7.5 g/dL (6.3-8.2)
--- NOTE | 2017-08-19 19:45 | ER Document Report ---
ED General - General Chief Complaint: Chest Pain Stated Complaint: CHEST PAIN Time Seen by Provider: 08/19/17 17:46 Mode of Arrival: Ambulatory Information source: Patient Notes: Chief complaint: Back pain History of complain:( obtained from----patient) 77 years old female presents today with upper back pain while she was at the primary care physician's office. They were concerned and referred her to the ED. By the time she arrived to the ED most of the discomfort have subsided. She has a history of pulmonary embolism a few years back. Currently had no leg pain or swelling but cramps on and off. No difficulty in breathing. Denied any precordial chest pain. Any left arm numbness tingling sensation nausea vomiting palpitation or diaphoresis. Onset: Just before arrival Duration: Lasted for a few minutes Severity: Mild to moderate Quality: Dull Context: Sitting for long time Exacerbating factor and relieving factors: Noncontributory REVIEW OF SYSTEMS: CONSTITUTIONAL : Denies fever, chills, or sweats. Denies recent illness. EENT: Denies eye, ear, throat, or mouth pain or symptoms. Denies nasal or sinus congestion or discharge. Denies throat, tongue, or mouth swelling or difficulty swallowing. CARDIOVASCULAR: Denies chest pain. Denies palpitations or racing or irregular heart beat. Denies ankle edema. RESPIRATORY: Denies cough, cold, or chest congestion. Denies shortness of breath, difficulty breathing, or wheezing. GASTROINTESTINAL: Denies distention. Denies nausea, vomiting, or diarrhea. Denies blood in vomitus, stools, or per rectum. Denies black, tarry stools. Denies constipation. GENITOURINARY: Denies difficulty urinating, painful urination, burning, frequency, blood in urine, or discharge. FEMALE GENITOURINARY: Denies vaginal bleeding, heavy or abnormal periods, irregular periods. Denies vaginal discharge or odor. MUSCULOSKELETAL: Denies back or neck pain or stiffness. Denies joint pain or swelling. SKIN: Denies rash, lesions or sores. HEMATOLOGIC : Denies easy bruising or bleeding. LYMPHATIC: Denies swollen, enlarged glands. NEUROLOGICAL: Denies confusion or altered mental status. Denies passing out or loss of consciousness. Denies dizziness or lightheadedness. Denies headache. Denies weakness or paralysis or loss of use of either side. Denies problems with gait or speech. Denies sensory loss, numbness, or tingling. Denies seizures. PSYCHIATRIC: Denies anxiety or stress. Denies depression, suicidal ideation, or homicidal ideation. ALL OTHER SYSTEMS REVIEWED AND NEGATIVE. PHYSICAL EXAMINATION: GENERAL: Well-appearing, well-nourished and in no acute distress. Appears to be comfortable HEAD: Atraumatic, normocephalic. EYES: Pupils equal round and reactive to light, extraocular movements intact, conjunctiva are normal. ENT: Nares patent, oropharynx clear without exudates. Moist mucous membranes. NECK: Normal range of motion, supple without lymphadenopathy LUNGS: Breath sounds clear to auscultation bilaterally and equal. No wheezes rales or rhonchi. HEART: Regular rate and rhythm without murmurs ABDOMEN: Soft, nontender, nondistended abdomen. No guarding, no rebound. No masses appreciated. Examination of genitals-deferred Musculoskeletal: Normal range of motion, no pitting or edema. No cyanosis. No calf swelling or tenderness noted NEUROLOGICAL: Cranial nerves grossly intact. Normal speech, normal gait. Normal sensory, motor exams PSYCH: Normal mood, normal affect. SKIN: Warm, Dry, normal turgor, no rashes or lesions noted. Dictation was performed using [employer] voice recognition software TRAVEL OUTSIDE OF THE [place] IN LAST 30 DAYS: No - Related Data Allergies/Adverse Reactions: No Known Allergies Allergy (Verified 08/19/17 17:17) Past Medical History - Social History Smoking Status: Never Smoker Chew tobacco use (# tins/day): No Frequency of alcohol use: None Drug Abuse: None Family History: Reviewed & Not Pertinent Patient has suicidal ideation: No Patient has homicidal ideation: No - Past Medical History Cardiac Medical History: Reports: Hx Atrial Fibrillation, Hx Hypertension Denies: Hx Heart Attack Pulmonary Medical History: Denies: Hx Asthma Neurological Medical History: Denies: Hx Cerebrovascular Accident, Hx Seizures Endocrine Medical History: Reports: Hx Diabetes Mellitus Type 1, Hx Diabetes Mellitus Type 2 Renal/ Medical History: Denies: Hx Peritoneal Dialysis GI Medical History: Denies: Hx Hepatitis, Hx Hiatal Hernia, Hx Ulcer Infectious Medical History: Denies: Hx Hepatitis Past Surgical History: Reports: Hx Appendectomy, Hx Hysterectomy, Hx Tonsillectomy. Denies: Hx Mastectomy, Hx Open Heart Surgery, Hx Pacemaker Physical Exam - Vital signs Vitals: Temp Pulse Resp BP Pulse Ox 98.5 F 67 16 144/53 H 98 08/19/17 17:28 08/19/17 17:28 08/19/17 17:28 08/19/17 17:28 08/19/17 17:28 Course - Re-evaluation Re-evalutation: 08/20/17 00:46 Uneventful - Vital Signs Vital signs: Temp Pulse Resp BP Pulse Ox 98.5 F 67 16 144/53 H 98 08/19/17 17:28 08/19/17 17:28 08/19/17 17:28 08/19/17 17:28 08/19/17 17:28 - Laboratory Result Diagrams: 08/19/17 18:05 08/19/17 18:05 Laboratory results interpreted by me: 08/19/17 08/19/17 08/19/17 18:05 18:05 18:05 Hgb 11.9 L Hct 35.9 L D-Dimer 0.71 H Sodium 147.2 H Chloride 110 H Est GFR (Non-Af Amer) 57 L - Diagnostic Test Radiology reviewed: Reports reviewed - CT was reported by radiologist as no pulmonary embolism Discharge - Discharge Clinical Impression: Upper back pain, D-dimer, elevated Condition: Fair Disposition: HOME, SELF-CARE Instructions: Chest Wall Pain ([facility]) Referrals: GASTON PEREA MD [Primary Care Provider] - Follow up as needed
--- NOTE | 2017-08-20 00:31 | RADIOLOGY REPORT (SQ) ---
EXAM DESCRIPTION: CT CHEST ANGIOGRAPHY WITH IV CONTRAST COMPLETED DATE/TME: 08/20/2017 00:00 CLINICAL HISTORY: Elevated d-dimer. Chest pain. Shortness of breath. COMPARISON: None Available. TECHNIQUE: CTA of the chest obtained following the uncomplicated intravenous administration of 100 mL Isovue-370. 3-D/MIP reformatted images of the chest available for evaluation. DLP: 507.04 mGycm FINDINGS: Chest: Pulmonary arteries: Contrast bolus is adequate.No filling defects identified in the pulmonary arteries to suggest pulmonary embolus. Thyroid:No abnormalities of the visualized thyroid. Great Vessels:Great vessels have normal anatomic configuration. Thoracic Aorta: Atherosclerotic calcification of the thoracic aorta. No evidence of dissection. Heart:No cardiomegaly, significant pericardial effusion, or coronary artery atherosclerosis Lymph Nodes:No enlarged mediastinal lymph nodes identified. Esophagus: Moderate hiatal hernia. Other:No additional findings. Lungs: Bibasilar discoid atelectasis. No lobar consolidation. Pleura:No pleural effusion or pneumothorax. Trachea/Airways:No abnormalities of the visualized trachea or airways. Bones:No destructive osseous lesions. Mild degenerative spondylosis of the thoracic spine. Upper Abdomen:Limited images of the upper abdomen demonstrate no definite abnormalities of visualized portions of the liver, gallbladder, pancreas, spleen, adrenal glands, or kidneys. IMPRESSION: 1. No pulmonary embolus. 2. Moderate hiatal hernia. This exam was performed according to our departmental dose-optimization program, which includes automated exposure control, adjustment of the mA and/or kV according to patient size and/or use of iterative reconstruction technique.
--- NOTE | 2017-08-20 07:37 | EKG REPORT ---
SEVERITY:- NORMAL ECG - SINUS RHYTHM : Confirmed by: Laurie Carlson MD 20-Aug-2017 07:37:14
== END 2017-08-20 01:06 | disposition home or self-care (01) ==
LOC: ER 17:12
DX: M54.6 Pain in thoracic spine (principal); R79.89 Other specified abnormal findings of blood chemistry; R07.9 Chest pain, unspecified; R20.0 Anesthesia of skin; Z86.711 Personal history of pulmonary embolism; I10 Essential (primary) hypertension; E11.9 Type 2 diabetes mellitus without complications
CPT/HCPCS: 36415; 71046; 71275; 80053; 84484; 85025; 85379; 93005; 93010; 99285

== ENCOUNTER 2017-09-26 16:07 | Emergency (ER) | payer MEDICARE, OTHER ==
[2017-09-26] MEDS ORDERED: LIDOCAINE 2% VISCOUS SOLN 20 ML UDCUP PO ONE (16:58)
[2017-09-26] MEDS ORDERED: PANTOPRAZOLE SODIUM 40 MG VIAL IV ONE (16:58)
[2017-09-26] MEDS ORDERED: METOCLOPRAMIDE HCL ORAL SOLN 10 MG/10 ML UDCUP PO ONE (16:58)
[2017-09-26] MEDS ORDERED: MAG HYDROX/AL HYDROX/SIMETH SUSP 30 ML UDCUP PO ONE (16:58)
--- NOTE | 2017-09-26 17:02 | ER Document Report ---
ED General - General Chief Complaint: Chest Pain Stated Complaint: CHEST DISCOMFORT Time Seen by Provider: 09/26/17 16:41 Mode of Arrival: Ambulatory Information source: Patient Notes: This is a 77-year-old female with a history of atrial fibrillation (Pradaxa), vii-kmlqulg-rkmiznxct diabetes, hypertension who presents with left chest discomfort. Patient states that the discomfort is not associated with exertion. She denies any improvement with rest. She denies any radiation. She states she has an acid taste in her mouth. She also states that it has been very difficult to swallow her pills and that she does not feel like they are going down all the way. She states normally she takes her Pradaxa pill with applesauce but did not this morning and she gets the sensation that it stuck. She has no difficulty with eating food or drinking fluids. She denies any known coronary artery disease. TRAVEL OUTSIDE OF THE [place] IN LAST 30 DAYS: No - HPI Onset: This morning Onset/Duration: Gradual Quality of pain: Other - disComfort Severity: None Pain Level: Denies Associated symptoms: Chest pain, Other - Sensation of pill being stuck. denies : Nausea, Vomiting, Shortness of breath Exacerbated by: Denies Relieved by: Denies Similar symptoms previously: Yes Recently seen / treated by doctor: No - Related Data Allergies/Adverse Reactions: No Known Allergies Allergy (Verified 09/26/17 16:08) Past Medical History - General Information source: Patient - Social History Smoking Status: Never Smoker Cigarette use (# per day): No Chew tobacco use (# tins/day): No Frequency of alcohol use: None Drug Abuse: None Lives with: Family Family History: Reviewed & Not Pertinent Patient has suicidal ideation: No Patient has homicidal ideation: No - Past Medical History Cardiac Medical History: Reports: Hx Atrial Fibrillation, Hx Hypertension Denies: Hx Heart Attack Pulmonary Medical History: Denies: Hx Asthma Neurological Medical History: Denies: Hx Cerebrovascular Accident, Hx Seizures Endocrine Medical History: Reports: Hx Diabetes Mellitus Type 1, Hx Diabetes Mellitus Type 2 Renal/ Medical History: Denies: Hx Peritoneal Dialysis GI Medical History: Denies: Hx Hepatitis, Hx Hiatal Hernia, Hx Ulcer Infectious Medical History: Denies: Hx Hepatitis Past Surgical History: Reports: Hx Appendectomy, Hx Hysterectomy, Hx Tonsillectomy. Denies: Hx Mastectomy, Hx Open Heart Surgery, Hx Pacemaker Review of Systems - Review of Systems Constitutional: denies: Chills, Fever EENT: No symptoms reported Cardiovascular: Chest pain. denies: Orthopnea Respiratory: denies: Short of breath Gastrointestinal: See HPI, Other - Acid taste, sensation pill getting stuck Genitourinary: No symptoms reported Female Genitourinary: No symptoms reported Musculoskeletal: No symptoms reported Skin: No symptoms reported Hematologic/Lymphatic: No symptoms reported Neurological/Psychological: No symptoms reported Physical Exam - Vital signs Vitals: Temp Pulse Resp BP Pulse Ox 98.6 F 68 16 152/65 H 99 09/26/17 16:11 09/26/17 16:11 09/26/17 16:11 09/26/17 16:11 09/26/17 16:11 Notes: Physical exam: GENERAL: A 7-year-old female, alert and oriented 3, no acute distress HEAD: Atraumatic, normocephalic. EYES: Pupils equal round and reactive to light, extraocular movements intact, sclera anicteric, conjunctiva are normal. ENT: TMs normal, nares patent, oropharynx clear without exudates. Moist mucous membranes. NECK: Normal range of motion, supple without obvious mass or JVD. LUNGS: Breath sounds clear to auscultation bilaterally and equal. No wheezes rales or rhonchi. HEART: Regular rate and rhythm without murmurs, rubs or gallops. ABDOMEN: Soft, normoactive bowel sounds. No tenderness to palpation. No guarding, no rebound. No masses appreciated. EXTREMITIES: Normal range of motion, no pitting or edema. No clubbing or cyanosis. NEUROLOGICAL: Cranial nerves II through XII grossly intact. Normal speech, moving all extremities. PSYCH: Normal mood, normal affect. SKIN: Warm, Dry, normal turgor, no rashes or lesions noted. Course - Re-evaluation Re-evalutation: 09/26/17 19:41 Patient was given GI cocktail with significant improvement. Given her age and comorbidities, she is being observed in the emergency room. Her EKG is nonacute. Her first set of cardiac enzymes are good. We will continue to observe. - Vital Signs Vital signs: Temp Pulse Resp BP Pulse Ox 98.4 F 68 13 144/61 H 96 09/26/17 19:01 09/26/17 16:11 09/26/17 21:01 09/26/17 21:01 09/26/17 21:01 - Laboratory Result Diagrams: 09/26/17 17:08 09/26/17 17:08 Laboratory results interpreted by me: 09/26/17 09/26/17 09/26/17 17:08 17:08 17:08 Hgb 11.8 L Hct 35.5 L PT 18.7 H Chloride 108 H Creatine Kinase 223 H - Diagnostic Test Radiology reviewed: Image reviewed, Reports reviewed - Chest x-ray shows no infiltrates - EKG Interpretation by Me Rate: Normal Rhythm: NSR - EKG shows normal sinus rhythm with a ventricular rate of 66, no acute ST-T wave changes Discharge - Discharge Clinical Impression: Gastritis, Esophageal irritation Condition: Stable Disposition: HOME, SELF-CARE Instructions: Reflux Disease (GERD) ([facility]), Antacid Therapy ([facility]), Prilosec ( Acid Pump Inhibitor) ([facility]) Additional Instructions: As we discussed, your EKGs and heart enzyme tests were normal. I think your symptoms are due to irritation of the esophagus from the pills. A recent CT scan performed in July showed a moderate sized hiatal hernia which can make you susceptible to esophageal reflux as well. I would like you to follow-up with your primary care doctor and bring a copy of today's lab work, serial EKGs as well as the CT scan results from a month ago for their records. In the meantime , I would like you to take the Carafate as prescribed for the next week for the esophagus. I would like you to take Prilosec for the next month. He may require follow-up with a GI doctor. Return to the emergency room at once for worsening pain, shortness of breath, or any concerns getting worse. Prescriptions: Omeprazole Magnesium [Prilosec Otc] 20 mg PO DAILY #30 tablet. Sucralfate [Carafate Susp 1 Gm/10 Ml Udcup] 1 gm PO BID #10 udc Referrals: GASTON PEREA MD [Primary Care Provider] - 09/28/17
[2017-09-26 17:26] LABS: ABSOLUTE BASOPHILS # (AUTO) 0.1 10^3/uL (0.0-0.2); ABSOLUTE EOSINOPHILS # (AUTO) 0.2 10^3/uL (0.0-0.6); ABSOLUTE LYMPHOCYTES (AUTO) 1.8 10^3/uL (0.5-4.7); ABSOLUTE MONOCYTES (AUTO) 0.6 10^3/uL (0.1-1.4); ABSOLUTE NEUT (AUTO) 3.8 10^3/uL (1.7-8.2); BASOPHILS % (AUTO) 0.8 % (0-2); EOSINOPHILS % (AUTO) 3.6 % (0-6); HEMATOCRIT 35.5 % (36.0-47.0); HEMOGLOBIN 11.8 g/dL (12.0-15.5); LYMPHOCYTES % (AUTO) 28.5 % (13-45); MEAN CORPUSCULAR HEMOGLOBIN 27.1 pg (27.0-33.4); MEAN CORPUSCULAR HGB CONC 33.2 g/dL (32.0-36.0); MEAN CORPUSCULAR VOLUME 82 fl (80-97); MONOCYTES % (AUTO) 8.6 % (3-13); PLATELET COUNT 245 10^3/uL (150-450); RED BLOOD COUNT 4.34 10^6/uL (3.72-5.28); SEGMENTED NEUTROPHILS % (AUTO) 58.5 % (42-78); TOTAL CELLS COUNTED % (AUTO) 100 %; WHITE BLOOD COUNT 6.5 10^3/uL (4.0-10.5)
[2017-09-26 17:31] LABS: INTERNATIONAL RATION (INR) 1.48; PROTHROMBIN TIME 18.7 SEC (11.4-15.4)
[2017-09-26 17:50] LABS: ALANINE AMINOTRANSFERASE 27 U/L (9-52); ALBUMIN 4.3 g/dL (3.5-5.0); ALKALINE PHOSPHATASE 116 U/L (38-126); ANION GAP 12 (5-19); ASPARTATE AMINO TRANSFERASE 28 U/L (14-36); BILIRUBIN,DIRECT 0.2 mg/dL (0.0-0.4); BILIRUBIN,TOTAL 0.4 mg/dL (0.2-1.3); BLOOD UREA NITROGEN 19 mg/dL (7-20); CALCIUM 9.7 mg/dL (8.4-10.2); CARBON DIOXIDE 25 mmol/L (22-30); CHLORIDE 108 mmol/L (98-107); CREATINE KINASE 223 U/L (30-135); GLUCOSE 94 mg/dL (75-110); POTASSIUM 4.5 mmol/L (3.6-5.0); SODIUM 144.9 mmol/L (137-145); TOTAL PROTEIN 7.6 g/dL (6.3-8.2)
[2017-09-26 18:00] LABS: CREATINE KINASE MB 1.47 ng/mL (<4.55)
[2017-09-26 18:01] LABS: TROPONIN I < 0.012 ng/mL
--- NOTE | 2017-09-26 19:04 | RADIOLOGY REPORT (SQ) ---
EXAM DESCRIPTION: CHEST SINGLE VIEW COMPLETED DATE/TIME: 09/26/2017 5:55 pm REASON FOR STUDY: chest pain COMPARISON: CT chest 08/19/2017 Two-view chest 08/19/2017 EXAM PARAMETERS: NUMBER OF VIEWS: One view. TECHNIQUE: Single frontal radiographic view of the chest acquired. RADIATION DOSE: NA LIMITATIONS: None. FINDINGS: LUNGS AND PLEURA: Bandlike atelectasis at both lung bases. No fluffy alveolar infiltrates worrisome for edema or pneumonia. No pleural effusion. No pneumothorax. MEDIASTINUM AND HILAR STRUCTURES: No masses. Contour normal. HEART AND VASCULAR STRUCTURES: Heart normal in size. Normal vasculature. BONES: No acute findings. HARDWARE: None in the chest. OTHER: No other significant finding. IMPRESSION: Bandlike atelectasis at both lung bases. No acute alveolar infiltrates. TECHNICAL DOCUMENTATION: JOB ID: [id number] [employer]- All Rights Reserved Reading location - IP/workstation name: [email or web address]
[2017-09-26 21:42] VITALS: BP 135/65
--- NOTE | 2017-09-27 09:48 | EKG REPORT ---
SEVERITY:- BORDERLINE ECG - SINUS RHYTHM PROBABLE LEFT ATRIAL ABNORMALITY : Confirmed by: Jordan Middleton 27-Sep-2017 09:48:25
--- NOTE | 2017-09-28 09:02 | EKG REPORT ---
SEVERITY:- BORDERLINE ECG - SINUS RHYTHM PROBABLE LEFT ATRIAL ABNORMALITY : Confirmed on behalf of: Jordan Middleton 28-Sep-2017 09:02:00
== END 2017-09-26 21:41 | disposition home or self-care (01) ==
LOC: ER 16:07
DX: K29.70 Gastritis, unspecified, without bleeding (principal); R19.8 Other specified symptoms and signs involving the digestive system and abdomen; R07.9 Chest pain, unspecified; R13.10 Dysphagia, unspecified; R09.89 Other specified symptoms and signs involving the circulatory and respiratory systems; I10 Essential (primary) hypertension; E11.9 Type 2 diabetes mellitus without complications; I48.91 Unspecified atrial fibrillation; Z79.02 Long term (current) use of antithrombotics/antiplatelets
CPT/HCPCS: 93005; 99285; 96374; 36415; 82553; 82550; 85025; 85610; 80053; 84484; 71045; 93010; J3490; A9270; C9113; S0164

== ENCOUNTER 2018-04-17 14:55 | Observation (INO) | payer MEDICARE, OTHER ==
--- NOTE | 2018-04-17 15:47 | ER Document Report ---
ED Medical Screen (RME) - General Chief Complaint: Chest Pain Stated Complaint: BREAST/ARM/NECK PAIN Time Seen by Provider: 04/17/18 15:30 Primary Care Provider: GASTON PEREA MD [Primary Care Provider] - Follow up as needed Notes: Patient is a 78-year-old female with history of hypertension and CAD that presents to the emergency department for chief complaint of left-sided chest pain, right shoulder pain. Patient's been having this pain on and off for the past several months, seems to be worse with exertion. ROS: Other than noted above, the 12 point review of systems was reviewed with the patient and were negative, all pertinent findings are included in the HPI. PHYSICAL EXAMINATION: Vital signs reviewed. GENERAL: Well-appearing, well-nourished and in no acute distress. HEAD: Atraumatic, normocephalic. EYES: Pupils equal round extraocular movements intact, conjunctiva are normal. ENT: Nares patent NECK: Normal range of motion CV: Heart regular rate and rhythm LUNGS: No respiratory distress Musculoskeletal: Normal range of motion NEUROLOGICAL: Normal speech PSYCH: Normal mood, normal affect. MDM: Patient seen and examined for rapid initial assessment. Vital signs reviewed. A comprehensive ED assessment and evaluation of the patient, analysis of test results and completion of the medical decision making process will be conducted by additional ED providers. *Note is created using voice recognition software and may contain spelling, syntax or grammatical errors. TRAVEL OUTSIDE OF THE [place] IN LAST 30 DAYS: No - Related Data Allergies/Adverse Reactions: No Known Allergies Allergy (Verified 09/26/17 16:08) Past Medical History - Social History Chew tobacco use (# tins/day): No Frequency of alcohol use: None Drug Abuse: None - Past Medical History Cardiac Medical History: Reports: Hx Atrial Fibrillation, Hx Hypertension Denies: Hx Heart Attack Pulmonary Medical History: Denies: Hx Asthma Neurological Medical History: Denies: Hx Cerebrovascular Accident, Hx Seizures Endocrine Medical History: Reports: Hx Diabetes Mellitus Type 1, Hx Diabetes Mellitus Type 2 Renal/ Medical History: Denies: Hx Peritoneal Dialysis GI Medical History: Denies: Hx Hepatitis, Hx Hiatal Hernia, Hx Ulcer Infectious Medical History: Denies: Hx Hepatitis Past Surgical History: Reports: Hx Appendectomy, Hx Hysterectomy, Hx Tonsillectomy. Denies: Hx Mastectomy, Hx Open Heart Surgery, Hx Pacemaker Physical Exam - Vital signs Vitals: Temp Pulse Resp BP Pulse Ox 98.3 F 62 16 148/64 H 99 04/17/18 15:13 04/17/18 15:13 04/17/18 15:13 04/17/18 15:13 04/17/18 15:13 Course - Vital Signs Vital signs: Temp Pulse Resp BP Pulse Ox 98.3 F 62 16 148/64 H 99 04/17/18 15:13 04/17/18 15:13 04/17/18 15:13 04/17/18 15:13 04/17/18 15:13 Doctor's Discharge - Discharge Referrals: GASTON PEREA MD [Primary Care Provider] - Follow up as needed
--- NOTE | 2018-04-17 16:57 | ER Document Report ---
ED General - General Chief Complaint: Chest Pain Stated Complaint: BREAST/ARM/NECK PAIN Time Seen by Provider: 04/17/18 15:30 Primary Care Provider: GASTON PEREA MD [Primary Care Provider] - Follow up as needed Notes: 78-year-old female to the emergency department chief complaint of chest pain and shoulder pain. Patient states that she has had on and off right shoulder pain for the last month. Has had workup done by her primary care doctor and has been to physical therapy but the shoulder pain has persisted. Patient states that she denies any trauma. Pain comes out of nowhere. Today the pain migrated to the central portion of her chest and she felt tightness in her chest and had a little pain in the left shoulder this time and it radiated up into her neck. There is a strong family history of cardiac issues in her family but patient states that the only heart problems she has had is atrial fibrillation for which she takes Pradaxa daily 4. Last stress test was in 2011 TRAVEL OUTSIDE OF THE [place] IN LAST 30 DAYS: No - HPI Onset: This morning Onset/Duration: Gradual Quality of pain: Achy Severity: Moderate Pain Level: 3 - Related Data Allergies/Adverse Reactions: No Known Allergies Allergy (Verified 09/26/17 16:08) Past Medical History - General Information source: Patient - Social History Smoking Status: Never Smoker Chew tobacco use (# tins/day): No Frequency of alcohol use: None Drug Abuse: None Lives with: Alone Family History: CAD, Hypertension Patient has suicidal ideation: No Patient has homicidal ideation: No - Past Medical History Cardiac Medical History: Reports: Hx Atrial Fibrillation, Hx Hypertension Denies: Hx Heart Attack Pulmonary Medical History: Denies: Hx Asthma Neurological Medical History: Denies: Hx Cerebrovascular Accident, Hx Seizures Endocrine Medical History: Reports: Hx Diabetes Mellitus Type 1, Hx Diabetes Mellitus Type 2 Renal/ Medical History: Denies: Hx Peritoneal Dialysis GI Medical History: Denies: Hx Hepatitis, Hx Hiatal Hernia, Hx Ulcer Infectious Medical History: Denies: Hx Hepatitis Past Surgical History: Reports: Hx Appendectomy, Hx Hysterectomy, Hx Tonsillectomy. Denies: Hx Mastectomy, Hx Open Heart Surgery, Hx Pacemaker Review of Systems - Review of Systems Notes: Constitutional: denies: Chills, Diaphoresis, Fever, Malaise, Weakness EENT: denies: Eye discharge, Blurred vision, Tearing, Double vision, Nose congestion, Nose discharge, Throat swelling, Mouth pain Cardiovascular: denies: Palpitations, Heart racing, Orthopnea, Dyspnea, +Chest pain Respiratory: denies: Cough, Hurts to breathe, Wheezing, Shortness of breath Gastrointestinal: denies: Abdominal pain, Diarrhea, Nausea, Vomiting, Black stools, bright red blood in stool Genitourinary: denies: Burning, Dysuria, Discharge, Frequency, Flank pain, Hematuria Musculoskeletal: denies: Joint pain, Joint swelling, Muscle pain, Muscle stiffness, back pain. Positive for right shoulder pain, left shoulder pain Hematologic/Lymphatic: denies: Anemia, Easy bleeding, Easy bruising, Blood cl ots Neurological/Psychological: denies: Confusion, Dementia, Depression, Loss of consciousness Skin: No lesions, no masses, no skin breakdown, no abscesses Physical Exam - Vital signs Vitals: Temp Pulse Resp BP Pulse Ox 98.3 F 62 16 148/64 H 99 04/17/18 15:13 04/17/18 15:13 04/17/18 15:13 04/17/18 15:13 04/17/18 15:13 Interpretation: Normal - General General appearance: Appears well, Alert - HEENT Head: Normocephalic, Atraumatic Eyes: Normal Pupils: PERRL - Respiratory Respiratory status: No respiratory distress Chest status: Nontender Breath sounds: Normal Chest palpation: Normal - Cardiovascular Rhythm: Regular Heart sounds: Normal auscultation Murmur: No - Abdominal Inspection: Normal Distension: No distension Bowel sounds: Normal Tenderness: Nontender Organomegaly: No organomegaly - Back Back: Normal, Nontender - Extremities General upper extremity: Normal inspection, Nontender, Normal color, Normal ROM, Normal temperature General lower extremity: Normal inspection, Nontender, Normal color, Normal ROM, Normal temperature, Normal weight bearing. No: Lele's sign - Neurological Neuro grossly intact: Yes Cognition: Normal Orientation: AAOx4 Kenvir Coma Scale Eye Opening: Spontaneous Antonette Coma Scale Verbal: Oriented Kenvir Coma Scale Motor: Obeys Commands Antonette Coma Scale Total: 15 Speech: Normal Motor strength normal: LUE, RUE, LLE, RLE Sensory: Normal - Psychological Associated symptoms: Normal affect, Normal mood - Skin Skin Temperature: Warm Skin Moisture: Dry Skin Color: Normal Course - Re-evaluation Re-evalutation: 04/17/18 19:42 At this time patient is asymptomatic but I am concerned being that she is a [age]-year-old female with some pain in the chest and shoulder. I would like her admitted. I have consulted with the hospitalist who agrees to admission at this time. Of note patient's potassium is slightly elevated so we will repeat that on the second troponin as well. - Vital Signs Vital signs: Temp Pulse Resp BP Pulse Ox 98.3 F 62 22 H 161/67 H 100 04/17/18 15:13 04/17/18 15:13 04/17/18 18:01 04/17/18 18:00 04/17/18 18:01 - Laboratory Result Diagrams: 04/17/18 16:33 04/17/18 16:33 Laboratory results interpreted by me: 04/17/18 16:33 Potassium 5.9 H Chloride 110 H - EKG Interpretation by Pr EKG shows normal: Sinus rhythm, Lyman, Intervals, QRS Complexes, ST-T Waves Discharge - Discharge Clinical Impression: Chest pain Qualifiers: Chest pain type: unspecified Qualified Code(s): R07.9 - Chest pain, unspecified Condition: Good Disposition: ADMITTED OBSERVATION Admitting Provider: Hospitalist - [facility] Unit Admitted: Telemetry Referrals: GASTON PEREA MD [Primary Care Provider] - Follow up as needed
[2018-04-17 17:15] LABS: ABSOLUTE BASOPHILS # (AUTO) 0.1 10^3/uL (0.0-0.2); ABSOLUTE EOSINOPHILS # (AUTO) 0.3 10^3/uL (0.0-0.6); ABSOLUTE LYMPHOCYTES (AUTO) 1.8 10^3/uL (0.5-4.7); ABSOLUTE MONOCYTES (AUTO) 0.3 10^3/uL (0.1-1.4); ABSOLUTE NEUT (AUTO) 2.8 10^3/uL (1.7-8.2); EOSINOPHILS % (AUTO) 5.2 % (0-6); HEMATOCRIT 40.5 % (36.0-47.0); HEMOGLOBIN 13.4 g/dL (12.0-15.5); LYMPHOCYTES % (AUTO) 33.8 % (13-45); MEAN CORPUSCULAR HEMOGLOBIN 27.1 pg (27.0-33.4); MEAN CORPUSCULAR HGB CONC 33.2 g/dL (32.0-36.0); MEAN CORPUSCULAR VOLUME 82 fl (80-97); MONOCYTES % (AUTO) 6.3 % (3-13); PLATELET COUNT 223 10^3/uL (150-450); RED BLOOD COUNT 4.96 10^6/uL (3.72-5.28); RED CELL DISTRIBUTION WIDTH 13.2 % (11.5-14.0); SEGMENTED NEUTROPHILS % (AUTO) 53.7 % (42-78); TOTAL CELLS COUNTED % (AUTO) 100 %; WHITE BLOOD COUNT 5.2 10^3/uL (4.0-10.5)
[2018-04-17 17:20] LABS: ALANINE AMINOTRANSFERASE 13 U/L (9-52); ALBUMIN 4.8 g/dL (3.5-5.0); ALKALINE PHOSPHATASE 121 U/L (38-126); ANION GAP 10 (5-19); ASPARTATE AMINO TRANSFERASE 32 U/L (14-36); BILIRUBIN,DIRECT 0.4 mg/dL (0.0-0.4); BILIRUBIN,TOTAL 0.6 mg/dL (0.2-1.3); BLOOD UREA NITROGEN 10 mg/dL (7-20); CARBON DIOXIDE 24 mmol/L (22-30); CHLORIDE 110 mmol/L (98-107); GLUCOSE 83 mg/dL (75-110); POTASSIUM 5.9 mmol/L (3.6-5.0); SODIUM 144.1 mmol/L (137-145)
--- NOTE | 2018-04-17 17:46 | RADIOLOGY REPORT (SQ) ---
EXAM DESCRIPTION: CHEST SINGLE VIEW COMPLETED DATE/TIME: 04/17/2018 5:29 pm REASON FOR STUDY: chest pain COMPARISON: 08/19/2017 TECHNIQUE: Single frontal radiographic view of the chest acquired. NUMBER OF VIEWS: One view. LIMITATIONS: None. FINDINGS: LUNGS AND PLEURA: No pneumothorax. No consolidation or pleural effusion. MEDIASTINUM AND HILAR STRUCTURES: Stable. HEART AND VASCULAR STRUCTURES: Stable. BONES: No acute findings. HARDWARE: None in the chest. OTHER: No other significant finding. IMPRESSION: NO ACUTE FINDINGS. TECHNICAL DOCUMENTATION: JOB ID: [id number] [id number] 2010 [employer]- All Rights Reserved Reading location - IP/workstation name: [email or web address]
[2018-04-17] MEDS ORDERED: ASPIRIN 81 MG TABLET, CHEWABLE PO ONE (18:43)
[2018-04-17] MEDS ORDERED: MAG HYDROX/AL HYDROX/SIMETH SUSP 30 ML UDCUP PO PRN (19:25)
[2018-04-17] MEDS ORDERED: ONDANSETRON HCL INJ/PF 4 MG/2 ML SDV IV PRN (19:25)
[2018-04-17] MEDS ORDERED: MAGNESIUM HYDROXIDE SUSP 30 ML UDCUP PO PRN (19:25)
[2018-04-17] MEDS ORDERED: ONDANSETRON 4 MG TAB.RAPDIS PO PRN (19:25)
[2018-04-17] MEDS ORDERED: NITROGLYCERIN 0.4 MG/TAB 25 TAB/BOTTLE SL PRN (19:32)
[2018-04-17] MEDS ORDERED: NALBUPHINE HCL INJ 10 MG/1 ML AMPULE IV PRN (19:32)
[2018-04-17] MEDS ORDERED: HYDRALAZINE HCL INJ/PF 20 MG/1 ML SDV IV PRN (19:32)
[2018-04-17] MEDS ORDERED: ACETAMINOPHEN 325 MG TABLET PO PRN (19:32)
[2018-04-17] MEDS ORDERED: TRAMADOL HCL 50 MG TABLET PO PRN (19:37)
[2018-04-17] MEDS ORDERED: DABIGATRAN ETEXILATE 150 MG CAPSULE PO ONE ×2 (20:30→20:53)
[2018-04-17] MEDS ORDERED: DOCUSATE SODIUM 100 MG CAPSULE PO ONE (20:30)
[2018-04-17 20:51] LABS: CREATINE KINASE MB 0.91 ng/mL (<4.55)
[2018-04-17 20:57] LABS: TROPONIN I < 0.012 ng/mL
[2018-04-17] MEDS ORDERED: ATORVASTATIN CALCIUM 40 MG TABLET PO SCH (22:00)
[2018-04-17] MEDS: FAMOTIDINE 20 MG TABLET PO SCH (22:36)
[2018-04-17] MEDS: SUCRALFATE SUSP 1 GM/10 ML UDCUP PO SCH (22:36)
[2018-04-18 01:58] LABS: CREATINE KINASE MB 0.69 ng/mL (<4.55)
[2018-04-18 02:04] LABS: TROPONIN I < 0.012 ng/mL
--- NOTE | 2018-04-18 02:15 | PDOC H&P ---
History of Present Illness Admission Date/PCP: 04/17/18 19:43 GASTON PEREA MD Patient complains of: Chest Pain History of Present Illness: BRITTANY REYES is a 78 year old female who presented to the emergency room with a history of a one hour long epidose of chest pain beginning in the mid-morning of admission. She admits that she has been having episodic (~25 minutes of severe pain followed by a 30 minute waning period to resolution) continuous, severely intense, nonradiating, deep seated aching right shoulder and upper arm pain on a regular basis (1-2 times daily) for the last several months but this morning shortly after waking she experienced the sudden onset of a new moderately intense (3/5), squeezing tightness under her left breast with rad iation (like indigestion) to the neck that persisted for one hour and spontaneously resolved without recurrence prior to coming to the emergency room. She denies prior similar episodes and has not identified any aggravating or ameliorating factors for her chest pain. In the emergency room she was found to have a negative troponin I and her EKG showed no evidence of acute cardiac ischemia or injury. She admits a prior cardiac stress test in 2011, performed in [place], which was negative for coronary artery disease. She does have a strong family history of coronary artery disease and has a personal history of paroxysmal atrial fibrillation and previous pulmonary embolism for which she t akes Pradaxa as chronic anticoagulation. With these findings and in consideration of her personal and family history the patient was admitted for further evaluation. Past Medical History Cardiac Medical History: Reports: Atrial Fibrillation, Hyperlipidema, Hy pertension, Pulmonary Embolism Denies: Coronary Artery Disease, Myocardial Infarction Pulmonary Medical History: Denies: Asthma, Chronic Obstructive Pulmonary Disease (COPD) EENT Medical History: Reports: Eyes - History of chronic dry eyes, Ears - History of external otitis Neurological Medical History: Denies: Hemorrhagic CVA, Ischemic CVA, Seizures Endocrine Medical History: Reports: Diabetes Mellitus Type 2 Denies: Hyperthyroidism, Hypothyroidism Renal/ Medical History: Denies: Chronic Kidney Disease, Nephrolithiasis Malignancy Medical History: Reports: None GI Medical History: Denies: Hepatitis, Hiatal Hernia Musculoskeltal Medical History: Reports: Arthritis - Chronic right shoulder pain her doctor told her was arthritis. Denies: Fibromyalgia Skin Medical History: Denies: Eczema, Psoriasis Psychiatric Medical History: Denies: Alcohol Dependency, Substance Abuse, Tobacco Dependency Traumatic Medical History: Reports: None Hematology: Reports: Anemia, Sickle Cell Disease Denies: Bleeding Tendencies Infectious Medical History: Reports: None Past Surgical History Past Surgical History: Reports: Appendectomy, Hysterectomy, Tonsillectomy Social History Information Source: Patient Lives with: Alone Smoking Status: Never Smoker Frequency of Alcohol Use: None Hx Recreational Drug Use: No Drugs: None Hx Prescription Drug Abuse: No - Advance Directive Resuscitation Status: Full Code Surrogate healthcare decision maker:: Her daughter Dori Casanova Family History Family History: CAD, Hypertension Parental Family History Reviewed: Yes Children Family History Reviewed: No Sibling(s) Family History Reviewed.: Yes Medication/Allergy Home Medications: Atorvastatin Calcium [Lipitor 40 mg Tablet] 40 mg PO QHS 04/24/16 Besifloxacin HCl [Besivance] 1 drop OP .12PM,3PM,8PM 04/24/16 Carboxymethylcellulose Sodium [Refresh Tears] 30 ml OP ASDIR PRN 04/24/16 Cholecalciferol (Vitamin D3) [Vitamin D3 5000 unit Capsule] 5,000 unit PO DAILY 04/24/16 Dabigatran Etexilate Mesylate [Pradaxa] 150 mg PO BID 04/24/16 Difluprednate [Durezol] 1 drop OP .12PM,3PM,8PM 04/24/16 Lisinopril 10 mg PO DAILY 04/24/16 Metformin HCl 500 mg PO BID 04/24/16 Nepafenac [Ilevro] 1 drop OP .12PM,3PM,8PM 05/01/16 Tramadol HCl [Ultram 50 mg Tablet] 50 mg PO Q6HP PRN #14 tablet 05/25/16 Hydrocortisone [Hydrocortisone 0.5% Cream 28.35 Gm] 1 applic TP Q8H PRN #1 tube 02/13/17 Cephalexin Monohydrate [Keflex 500 mg Capsule] 500 mg PO TID 5 Days capsule 04/26/17 Triamcinolone Acetonide [Aristocort 0.1% Cream] 1 applic TP TID #30 gm 04/26/17 Omeprazole Magnesium [Prilosec Otc] 20 mg PO DAILY #30 tablet. 09/26/17 Sucralfate [Carafate Susp 1 Gm/10 Ml Udcup] 1 gm PO BID #10 udc 09/26/17 Allergies/Adverse Reactions: No Known Allergies Allergy (Verified 09/26/17 16:08) Review of Systems Constitutional: ABSENT: chills, fever(s) Eyes: ABSENT: visual disturbances, other - Eye pain Ears: ABSENT: hearing changes, other - Ear pain Nose, Mouth, and Throat: ABSENT: mouth pain, sore throat Cardiovascular: PRESENT: as per HPI, chest pain. ABSENT: dyspnea on exertion, edema, orthropnea, palpitations Respiratory: ABSENT: cough, dyspnea Gastrointestinal: ABSENT: abdominal pain, constipation, diarrhea, nausea, vomiting Genitourinary: ABSENT: dysuria, hematuria Musculoskeletal: PRESENT: as per HPI, other - Right shoulder pain. ABSENT: back pain, deformity, joint swelling Integumentary: ABSENT: pruritus, rash Neurological: ABSENT: confusion, convulsions, focal weakness, memory loss, tremor(s) Psychiatric: ABSENT: anxiety, depression Endocrine: ABSENT: cold intolerance, heat intolerance Hematologic/Lymphatic: ABSENT: easy bleeding, easy bruising Physical Exam Vital Signs: Temp Pulse Resp BP Pulse Ox 98.3 F 62 22 H 161/67 H 100 04/17/18 15:13 04/17/18 15:13 04/17/18 18:01 04/17/18 18:00 04/17/18 18:01 Intake & Output 04/15/18 04/16/18 04/17/18 23:59 23:59 23:59 Weight 60.5 kg General appearance: PRESENT: no acute distress, cooperative Head exam: PRESENT: atraumatic, normocephalic Eye exam: PRESENT: conjunctiva pink, EOMI. ABSENT: scleral icterus Ear exam: PRESENT: normal external ear exam. ABSENT: bleeding, drainage Mouth exam: PRESENT: dry mucosa, neck supple Neck exam: ABSENT: JVD, thyromegaly, tracheal deviation Respiratory exam: PRESENT: clear to auscultation flor, symmetrical, unlabored Cardiovascular exam: PRESENT: RRR. ABSENT: clicks, gallop, rubs Pulses: PRESENT: normal radial pulses, normal dorsalis pedis pul Vascular exam: PRESENT: normal capillary refill, other - Mild bilateral lower extremity varicosities. ABSENT: pallor GI/Abdominal exam: PRESENT: normal bowel sounds, soft Rectal exam: PRESENT: deferred Extremities exam: ABSENT: joint swelling, pedal edema Musculoskeletal exam: ABSENT: deformity, dislocation Neurological exam: PRESENT: alert, awake, oriented to person, oriented to place, oriented to time, oriented to situation, CN II-XII grossly intact. ABSENT: motor sensory deficit Psychiatric exam: PRESENT: appropriate affect, normal mood Skin exam: PRESENT: dry, intact, warm. ABSENT: jaundice, rash, urticaria Results Laboratory Results: 04/17/18 16:33 04/17/18 16:33 04/17/18 04/17/18 04/17/18 16:33 16:33 16:33 WBC 5.2 RBC 4.96 Hgb 13.4 Hct 40.5 MCV 82 MCH 27.1 MCHC 33.2 RDW 13.2 Plt Count 223 Seg Neutrophils % 53.7 Lymphocytes % 33.8 Monocytes % 6.3 Eosinophils % 5.2 Basophils % 1.0 Absolute Neutrophils 2.8 Absolute Lymphocytes 1.8 Absolute Monocytes 0.3 Absolute Eosinophils 0.3 Absolute Basophils 0.1 Sodium 144.1 Potassium 5.9 H Chloride 110 H Carbon Dioxide 24 Anion Gap 10 BUN 10 Creatinine 0.80 Est GFR ( Amer) > 60 Est GFR (Non-Af Amer) > 60 Glucose 83 Calcium 10.0 Total Bilirubin 0.6 AST 32 ALT 13 Alkaline Phosphatase 121 Total Protein 8.0 Albumin 4.8 Lipase 64.6 04/17/18 16:33 Troponin I < 0.012 Impressions: Chest X-Ray 04/17/18 15:47 IMPRESSION: NO ACUTE FINDINGS. Assessment & Plan - Diagnosis (1) Chest pain Qualifiers: Chest pain type: unspecified Qualified Code(s): R07.9 - Chest pain, unspecified Is this a current diagnosis for this admission?: Yes Plan: Patient's chest pain will be evaluated utilizing a Cardiolite stress test as well as serial cardiac enzyme assessments and EKGs. Additionally she will use Nubain 10 mg IV every 3 hours as needed for pain. (2) Acute hyperkalemia Is this a current diagnosis for this admission?: Yes Plan: Patient's serum potassium was monitored on a regular basis with daily electrolytes. Appropriate intervention will be used as needed. (3) Paroxysmal atrial fibrillation Is this a current diagnosis for this admission?: Yes Plan: Patient be monitored on telemetry floor with intervention for any episodes of atrial fibrillation with a rapid ventricular response as required. (4) Chronic anticoagulation Is this a current diagnosis for this admission?: Yes Plan: Patient will be continued on her regular dose of Pradaxa 150 mg p.o. twice daily. Her CBC and basic metabolic profile will be monitored on a regular basis. (5) Chronic right shoulder pain Is this a current diagnosis for this admission?: Yes Plan: The patient will be continued on her usual tramadol 50 mg p.o. every 6 hours as needed for pain but will also have available Nubain 10 mg IV every 3 hours as needed more severe pain. An MRI of the right shoulder will be obtained and a orthopedic consultation will be requested. - Time Time Spent: 30 to 50 Minutes Critical Time spent with patient: Less than 15 minutes Medications reviewed and adjusted accordingly: Yes Anticipated discharge: Home Within: within 48 hours - Inpatient Certification Based on my medical assessment, after consideration of the patient's comorbidities, presenting symptoms, or acuity I expect that the services needed warrant INPATIENT care.: Yes I certify that my determination is in accordance with my understanding of Medicare's requirements for reasonable and necessary INPATIENT services [42 CFR 412.3e].: Yes Medical Necessity: Need Close Monitoring Due to Risk of Patient Decompensation, Need For Continuous Telemetry Monitoring, Risk of Complication if Not Cared For in Hospital
[2018-04-18 04:43] LABS: APPEARANCE,URINE CLEAR; BILIRUBIN,URINE NEGATIVE (NEGATIVE); COLOR,URINE STRAW; GLUCOSE, URINE NEGATIVE (NEGATIVE); KETONES,URINE NEGATIVE (NEGATIVE); LEUKOCYTE ESTERASE,URINE TRACE (NEGATIVE); NITRITE,URINE NEGATIVE (NEGATIVE); PROTEIN,URINE NEGATIVE (NEGATIVE); URINE SPECIFIC GRAVITY 1.009; UROBILINOGEN,URINE NEGATIVE mg/dL (<2.0)
[2018-04-18 08:44] LABS: HEMATOCRIT 34.9 % (36.0-47.0); HEMOGLOBIN 11.6 g/dL (12.0-15.5); MEAN CORPUSCULAR HEMOGLOBIN 27.3 pg (27.0-33.4); MEAN CORPUSCULAR HGB CONC 33.3 g/dL (32.0-36.0); MEAN CORPUSCULAR VOLUME 82 fl (80-97); PLATELET COUNT 224 10^3/uL (150-450); RED BLOOD COUNT 4.26 10^6/uL (3.72-5.28); RED CELL DISTRIBUTION WIDTH 13.1 % (11.5-14.0); WHITE BLOOD COUNT 4.4 10^3/uL (4.0-10.5)
--- NOTE | 2018-04-18 08:53 | EKG REPORT ---
SEVERITY:- NORMAL ECG - SINUS RHYTHM : Confirmed by: Geovanny Schneider MD 18-Apr-2018 08:53:14
[2018-04-18 09:17] LABS: ANION GAP 8 (5-19); BLOOD UREA NITROGEN 9 mg/dL (7-20); CALCIUM 9.4 mg/dL (8.4-10.2); CARBON DIOXIDE 25 mmol/L (22-30); CHLORIDE 112 mmol/L (98-107); CHOLESTEROL 173.44 mg/dL (0-200); GLUCOSE 109 mg/dL (75-110); POTASSIUM 3.9 mmol/L (3.6-5.0); SODIUM 145.1 mmol/L (137-145); TRIGLYCERIDES 77 mg/dL (<150)
[2018-04-18 09:27] LABS: DIRECT LDL 106 mg/dL (<100)
[2018-04-18 09:28] LABS: CREATINE KINASE MB 0.55 ng/mL (<4.55)
[2018-04-18 09:33] LABS: TROPONIN I < 0.012 ng/mL
[2018-04-18 09:34] LABS: FREE T3 3.81 pg/mL (2.77-5.27); FREE T4 (FREE THYROXINE) 1.08 ng/dL (0.78-2.19)
[2018-04-18 09:49] LABS: THYROID STIMULATING HORMONE 3.29 uIU/mL (0.47-4.68)
[2018-04-18] MEDS: FAMOTIDINE 20 MG TABLET PO SCH ×3 (09:51→15:48)
[2018-04-18] MEDS: SUCRALFATE SUSP 1 GM/10 ML UDCUP PO SCH ×3 (09:51→15:48)
[2018-04-18] MEDS ORDERED: CHOLECALCIFEROL (D3) 1,000 UNIT TABLET PO SCH (10:00)
[2018-04-18] MEDS ORDERED: LISINOPRIL 10 MG TABLET PO SCH (10:00)
[2018-04-18] MEDS ORDERED: DABIGATRAN ETEXILATE 150 MG CAPSULE PO SCH (10:00)
[2018-04-18] MEDS ORDERED: DOCUSATE SODIUM 100 MG CAPSULE PO SCH (10:00)
[2018-04-18] MEDS ORDERED: REGADENOSON INJ 0.4 MG/5 ML DISP.SYRIN IV ONE (11:45)
--- NOTE | 2018-04-18 12:59 | DRAGON STRESS TEST REPORT ---
Intravenous Lexiscan Cardiolite stress test using single photon emmision computerized tomography. Date of procedure: 04/18/2018. Ordering Provider: Dr. Man. Patient's status: In Patient. Indication: Chest pain. Coronary risk factors: Age, hypertension, dyslipidemia, and family history of coronary artery disease. Resting EKG: Sinus Rhythm. Within Normal Limits. Stress EKG: No changes of ischemia. The patient had no chest pain or discomfort, and there were no arrhythmias seen. Reason for termination: Protocol. Conclusions: Normal EKG and hemodynamic response to IV Lexiscan. Nuclear data: At rest the patient was given 10.76 millicuries of technetium 99m sestamibi injected intravenously. As per protocol rest non gated SPECT images were obtained. Subsequently the patient was given intravenous Lexiscan at a dose of 0.4 mg in 5 mL intravenously, followed by flush with normal saline. Subsequently the stress dose of 32.0 millicuries of technetium 99m sestamibi was injected intravenously. As per protocol stress gated images were obtained. Nuclear interpretation: Review of images showed that all segments of the myocardium had normal perfusion at rest, and normal perfusion post stress with IV Lexiscan. All segments of the myocardium had normal motion, contraction, and thickening by gated study. T. I D. ratio was normal at 0.90. There is no transient ischemic dilatation of the left ventricle. Computer read rest, and stress left ventricular ejection fraction were 81 %, and 79 %, respectively. Conclusion: 1. There is no scintigraphic evidence of Lexiscan induced myocardial ischemia. 2. There is no scintigraphic evidence of myocardial infarction/scar. Recommendations: Aggressive risk factor modification, and treating the underlying co- morbidities. MTDD
--- NOTE | 2018-04-18 13:55 | RADIOLOGY REPORT (SQ) ---
EXAM DESCRIPTION: MRI RT UPPER JOINT WITHOUT COMPLETED DATE/TIME: 04/18/2018 12:27 pm REASON FOR STUDY: right shoulder and proximal humeral pain COMPARISON: None. TECHNIQUE: Right shoulder images acquired and stored on PACS. Multiplanar imaging to include fat sen sitive sequences such as T1, water sensitive sequences such as FST2/STIR, cartilage sensitive sequenc es such as FSPD/gradient-echo sequences. LIMITATIONS: Motion. FINDINGS: BONE MARROW AND CORTEX: No worrisome bone lesions or marrow replacement. No occult fractur es. JOINT OR BURSAL EFFUSION: No significant joint or bursal fluid. No suggestion of loose bodies. GLENO-HUMERAL ARTICULATION: Intact. ACROMION AND AC JOINT: Type 2 acromion. Distal acromial spur. Mild AC joint arthropathy. ROTATOR CUFF AND INTERVAL: Chronic interstitial tears infraspinatus musculotendinous junction. More subtle chronic interstitial tear supraspinatus musculotendinous junction. Partial thickness intrasub stance tear distal supraspinatus tendon. Mild fibrosis rotator interval. LABRUM AND BICEPS LABRAL COMPLEX: Intact. Distal biceps intact. REMAINDER OF LABRUM AND IGHL : Intact. PERIARTICULAR AND ADJACENT SOFT TISSUES: No masses or abnormal nodes. OTHER: No other significant finding. IMPRESSION: Partial-thickness intrasubstance tear anterior distal supraspinatus. No full-thickness tear. More chronic appearing interstitial tears infraspinatus and supraspinatus musculotendinous kathy ction. TECHNICAL DOCUMENTATION: JOB ID: [id number] [employer]- All Rights Reserved Reading location - IP/workstation name: [email or web address]
--- NOTE | 2018-04-18 14:33 | PDOC CONSULTATION ---
History of Present Illness Admission Date/PCP: 04/17/18 19:43 GASTON PEREA MD Patient complains of: Right shoulder pain History of Present Illness: BRITTANY REYES is a 78 year old female who was admitted to the hospital with chest pain. She has long-standing history of right shoulder pain with BX was consulted for further evaluation. She states she has been undergoing physical therapy and utilizing topical anti-inflammatories. She has good days and bad days. Pain worse at night and occasion with overhead activities. Pain 3/5. Denies specific injury. Past Medical History Cardiac Medical History: Reports: Atrial Fibrillation, Hyperlipidema, Hypertension, Pulmonary Embolism Denies: Coronary Artery Disease, DVT, Myocardial Infarction Pulmonary Medical History: Denies: Asthma, Chronic Obstructive Pulmonary Disease (COPD) EENT Medical History: Reports: Eyes - History of chronic dry eyes, Ears - History of external otitis Neurological Medical History: Denies: Hemorrhagic CVA, Ischemic CVA, Seizures Endocrine Medical History: Reports: Diabetes Mellitus Type 1, Diabetes Mellitus Type 2 Denies: Hyperthyroidism, Hypothyroidism Renal/ Medical History: Denies: Chronic Kidney Disease, Nephrolithiasis Malignancy Medical History: Reports: None GI Medical History: Denies: Hepatitis, Hiatal Hernia Musculoskeltal Medical History: Reports: Arthritis - Chronic right shoulder pain her doctor told her was arthritis. Denies: Fibromyalgia Skin Medical History: Denies: Eczema, Psoriasis Psychiatric Medical History: Denies: Alcohol Dependency, Substance Abuse, Tobacco Dependency Traumatic Medical History: Reports: None Hematology: Reports: Anemia, Sickle Cell Disease Denies: Bleeding Tendencies Infectious Medical History: Reports: None Past Surgical History Past Surgical History: Reports: Appendectomy, Hysterectomy, Tonsillectomy Denies: Amputation, Mastectomy, Pacemaker Social History Lives with: Alone Smoking Status: Never Smoker Frequency of Alcohol Use: None Hx Recreational Drug Use: No Drugs: None Hx Prescription Drug Abuse: No - Advance Directive Resuscitation Status: Full Code Family History Family History: CAD, Hypertension Parental Family History Reviewed: No Children Family History Reviewed: No Sibling(s) Family History Reviewed.: No Medication/Allergy Home Medications: Amlodipine Besylate [Norvasc 5 mg Tablet] 5 mg PO DAILY 04/18/18 Atorvastatin Calcium [Lipitor 40 mg Tablet] 40 mg PO QHS 04/18/18 Dabigatran Etexilate Mesylate [Pradaxa 150 mg Capsule] 150 mg PO Q12 04/18/18 Allergies/Adverse Reactions: No Known Allergies Allergy (Verified 09/26/17 16:08) Review of Systems Constitutional: ABSENT: chills, fever(s), headache(s), weight gain, weight loss Eyes: ABSENT: visual disturbances Ears: ABSENT: hearing changes Cardiovascular: PRESENT: chest pain Respiratory: ABSENT: cough, hemoptysis Gastrointestinal: ABSENT: abdominal pain, constipation, diarrhea, hematemesis, hematochezia, nausea, vomiting Genitourinary: ABSENT: dysuria, hematuria Musculoskeletal: PRESENT: as per HPI Integumentary: ABSENT: rash, wounds Neurological: ABSENT: abnormal gait, abnormal speech, confusion, dizziness, focal weakness, syncope Psychiatric: ABSENT: anxiety, depression, homidical ideation, suicidal ideation Endocrine: ABSENT: cold intolerance, heat intolerance, menstrual abnormalities, polydipsia, polyuria Hematologic/Lymphatic: ABSENT: easy bleeding, easy bruising, lymphadenopathy Physical Exam Vital Signs: Temp Pulse Resp BP Pulse Ox 98.4 F 62 17 128/55 H 99 04/18/18 07:57 04/18/18 14:00 04/18/18 07:57 04/18/18 07:57 04/18/18 07:57 Intake & Output 04/17/18 04/18/18 04/19/18 06:59 06:59 06:59 Intake Total 110 Output Total 500 Balance -390 Weight 61.1 kg General appearance: PRESENT: no acute distress, well-developed, well-nourished Head exam: PRESENT: atraumatic, normocephalic Eye exam: PRESENT: conjunctiva pink, EOMI, PERRLA. ABSENT: scleral icterus Ear exam: PRESENT: normal external ear exam Mouth exam: PRESENT: moist, tongue midline Neck exam: PRESENT: full ROM. ABSENT: carotid bruit, JVD, lymphadenopathy, thyromegaly Cardiovascular exam: ABSENT: diastolic murmur, rubs, systolic murmur Pulses: PRESENT: normal dorsalis pedis pul, +2 pedal pulses bilateral Vascular exam: PRESENT: normal capillary refill GI/Abdominal exam: PRESENT: normal bowel sounds, soft. ABSENT: distended, guarding, mass, organolmegaly, rebound, tenderness Rectal exam: PRESENT: deferred Musculoskeletal exam: PRESENT: other - Right shoulder: Mild tenderness anterior and lateral. No ecchymosis or swelling. Positive [place], [place]'s and Lucinda's test. No evidence of atrophy. Forward flexion/abduction/external rotation 170 degrees / 93/50 degrees. No AC joint tenderness. Neurological exam: PRESENT: alert, awake, oriented to person, oriented to place, oriented to time, oriented to situation, CN II-XII grossly intact. ABSENT: motor sensory deficit Psychiatric exam: PRESENT: appropriate affect, normal mood. ABSENT: homicidal ideation, suicidal ideation Skin exam: PRESENT: dry, intact, warm. ABSENT: cyanosis, rash Results Laboratory Results: 04/18/18 08:34 04/18/18 08:34 04/17/18 04/17/18 04/17/18 16:33 16:33 16:33 WBC 5.2 RBC 4.96 Hgb 13.4 Hct 40.5 MCV 82 MCH 27.1 MCHC 33.2 RDW 13.2 Plt Count 223 Seg Neutrophils % 53.7 Lymphocytes % 33.8 Monocytes % 6.3 Eosinophils % 5.2 Basophils % 1.0 Absolute Neutrophils 2.8 Absolute Lymphocytes 1.8 Absolute Monocytes 0.3 Absolute Eosinophils 0.3 Absolute Basophils 0.1 Sodium 144.1 Potassium 5.9 H Chloride 110 H Carbon Dioxide 24 Anion Gap 10 BUN 10 Creatinine 0.80 Est GFR ( Amer) > 60 Est GFR (Non-Af Amer) > 60 Glucose 83 Calcium 10.0 Magnesium Total Bilirubin 0.6 AST 32 ALT 13 Alkaline Phosphatase 121 Total Protein 8.0 Albumin 4.8 Triglycerides Cholesterol LDL Cholesterol Direct VLDL Cholesterol HDL Cholesterol Lipase 64.6 TSH Free T4 Free T3 pg/mL Urine Color Urine Appearance Urine pH Ur Specific Spade Urine Protein Urine Glucose (UA) Urine Ketones Urine Blood Urine Nitrite Ur Leukocyte Esterase Urine WBC (Auto) Urine RBC (Auto) 04/17/18 04/18/18 04/18/18 20:00 04:30 08:34 WBC 4.4 RBC 4.26 Hgb 11.6 L Hct 34.9 L MCV 82 MCH 27.3 MCHC 33.3 RDW 13.1 Plt Count 224 Seg Neutrophils % Lymphocytes % Monocytes % Eosinophils % Basophils % Absolute Neutrophils Absolute Lymphocytes Absolute Monocytes Absolute Eosinophils Absolute Basophils Sodium Potassium 4.0 D Chloride Carbon Dioxide Anion Gap BUN Creatinine Est GFR ( Amer) Est GFR (Non-Af Amer) Glucose Calcium Magnesium Total Bilirubin AST ALT Alkaline Phosphatase Total Protein Albumin Triglycerides Cholesterol LDL Cholesterol Direct VLDL Cholesterol HDL Cholesterol Lipase TSH Free T4 Free T3 pg/mL Urine Color STRAW Urine Appearance CLEAR Urine pH 7.0 Ur Specific Spade 1.009 Urine Protein NEGATIVE Urine Glucose (UA) NEGATIVE Urine Ketones NEGATIVE Urine Blood NEGATIVE Urine Nitrite NEGATIVE Ur Leukocyte Esterase TRACE H Urine WBC (Auto) 3 Urine RBC (Auto) 0 04/18/18 04/18/18 08:34 08:34 WBC RBC Hgb Hct MCV MCH MCHC RDW Plt Count Seg Neutrophils % Lymphocytes % Monocytes % Eosinophils % Basophils % Absolute Neutrophils Absolute Lymphocytes Absolute Monocytes Absolute Eosinophils Absolute Basophils Sodium 145.1 H Potassium 3.9 Chloride 112 H Carbon Dioxide 25 Anion Gap 8 BUN 9 Creatinine 0.71 Est GFR ( Amer) > 60 Est GFR (Non-Af Amer) > 60 Glucose 109 Calcium 9.4 Magnesium 1.8 Total Bilirubin AST ALT Alkaline Phosphatase Total Protein Albumin Triglycerides 77 Cholesterol 173.44 LDL Cholesterol Direct 106 H VLDL Cholesterol 15.0 HDL Cholesterol 49 Lipase TSH 3.29 Free T4 1.08 Free T3 pg/mL 3.81 Urine Color Urine Appearance Urine pH Ur Specific Spade Urine Protein Urine Glucose (UA) Urine Ketones Urine Blood Urine Nitrite Ur Leukocyte Esterase Urine WBC (Auto) Urine RBC (Auto) 04/17/18 04/17/18 04/17/18 16:33 20:00 20:00 Creatine Kinase 126 CK-MB (CK-2) 0.91 Troponin I < 0.012 < 0.012 NT-Pro-B Natriuret Pep 04/18/18 04/18/18 04/18/18 01:23 01:23 08:34 Creatine Kinase 95 CK-MB (CK-2) 0.69 Troponin I < 0.012 NT-Pro-B Natriuret Pep 78 04/18/18 04/18/18 08:34 08:34 Creatine Kinase 85 CK-MB (CK-2) 0.55 Troponin I < 0.012 NT-Pro-B Natriuret Pep Impressions: Chest X-Ray 04/17/18 15:47 IMPRESSION: NO ACUTE FINDINGS. Upper Extremity MRI 04/18/18 00:00 IMPRESSION: Partial-thickness intrasubstance tear anterior distal supraspinatus. No full-thickness tear. More chronic appearing interstitial tears infraspinatus and supraspinatus musculotendinous junction. Status: Image reviewed by me - I have reviewed patient's radiographs and MRI which demonstrates interstitial partial thickness supraspinatus tear with extension into the musculotendinous junction, with associated subacromial bursitis no acute abnormality. Radiographs demonstrate significant anterior acromial spur without evidence of degenerative changes Assessment & Plan - Diagnosis (1) Subacromial bursitis of right shoulder joint Is this a current diagnosis for this admission?: Yes Plan: MRI demonstrates evidence of partial thickness rotator cuff tear with associated bursitis. No full-thickness tear appreciated. Thus would continue conservative management including anti-inflammatories if tolerated, physical therapy also discussed possibility of subacromial injection which we may be able to do while patient is in the hospital. Patient will consider this treatment option if you would like to proceed with injection feel free to contact us.
--- NOTE | 2018-04-18 14:40 | RADIOLOGY REPORT (SQ) ---
EXAM DESCRIPTION: SHOULDER RIGHT 2 OR MORE VIEWS COMPLETED DATE/TIME: 04/18/2018 2:22 pm REASON FOR STUDY: Pain COMPARISON: None. NUMBER OF VIEWS: Three views. TECHNIQUE: Internal rotation, external rotation, and Y view images acquired of the right shoulder. LIMITATIONS: None. FINDINGS: MINERALIZATION: Normal. BONES: No acute fracture or dislocation. Mild arthrosis of the AC joint with 5 mm subacromial spur. JOINTS: No dislocation. VISUALIZED LUNGS AND RIBS: No pneumothorax. No rib fracture. SOFT TISSUES: No radiopaque foreign body. OTHER: No other significant finding. IMPRESSION: NO RADIOGRAPHIC EVIDENCE OF ACUTE INJURY. TECHNICAL DOCUMENTATION: JOB ID: [id number] [id number] 2010 [email or web address]- All Rights Reserved Reading location - IP/workstation name: [facility]
[2018-04-18 16:14] VITALS: BP 139/51
--- NOTE | 2018-04-22 09:26 | PDOC DISCHARGE SUMMARY ---
General - Admit/Disc Date/PCP Admission Date/Primary Care Provider: 04/17/18 19:43 GASTON PEREA MD Discharge Date: 04/18/18 - Discharge Diagnosis (1) Chest pain Is this a current diagnosis for this admission?: Yes (2) Chronic right shoulder pain Is this a current diagnosis for this admission?: Yes (3) Paroxysmal atrial fibrillation Is this a current diagnosis for this admission?: Yes - Additional Information Resuscitation Status: Full Code Discharge Diet: As Tolerated Discharge Activity: Activity As Tolerated Prescriptions: Apixaban [Eliquis 5 mg Tablet] 5 mg PO BID #60 tablet Home Medications: Amlodipine Besylate [Norvasc 5 mg Tablet] 5 mg PO DAILY 04/18/18 Apixaban [Eliquis 5 mg Tablet] 5 mg PO BID #60 tablet 04/18/18 Atorvastatin Calcium [Lipitor 40 mg Tablet] 40 mg PO QHS 04/18/18 Atorvastatin Calcium [Lipitor 40 mg Tablet] 40 mg PO QHS tablet 04/18/18 Lisinopril [Prinivil 10 mg Tablet] 10 mg PO DAILY tablet 04/18/18 Sucralfate [Carafate Susp 1 gm/10 ml Udcup] 1 gm PO ACHS udc 04/18/18 Tramadol HCl [Ultram 50 mg Tablet] 50 mg PO Q6HP PRN tablet 04/18/18 History of Present Illness History of Present Illness: BRITTANY REYES is a 78 year old female who presented to the emergency room with a history of a one hour long epidose of chest pain beginning in the mid-morning of admission. She admits that she has been having episodic (~25 minutes of severe pain followed by a 30 minute waning period to resolution) continuous, severely intense, nonradiating, deep seated aching right shoulder and upper arm pain on a regular basis (1-2 times daily) for the last several months but this morning shortly after waking she experienced the sudden onset of a new moderately intense (3/5), squeezing tightness under her left breast with radiation (like indigestion) to the neck that persisted for one hour and spon taneously resolved without recurrence prior to coming to the emergency room. She denies prior similar episodes and has not identified any aggravating or ameliorating factors for her chest pain. In the emergency room she was found to have a negative troponin I and her EKG showed no evidence of acute cardiac ischemia or injury. She admits a prior cardiac stress test in 2011, performed in [place], which was negative for coronary artery disease. She does have a strong family history of coronary artery disease and has a personal history of paroxysmal atrial fibrillation and previous pulmonary embolism for which she takes Pradaxa as chronic anticoagulation. With these findings and in consi deration of her personal and family history the patient was admitted for further evaluation. Hospital Course Hospital Course: 78 y.o. F with a PMH of AFIB, PE, HTN, GERD and a chronic R shoulder injury presented to [facility] with chest pain. She was admitted to the hospitalist service for chest pain observations. EKG, CXR and cardiac enzymes all WNL. The patient underwent a Cardiolite Stress Test, which was also normal. At the recommendation of Dr. Cheng, the patient was switched from Pradaxa to Eliquis for AFIB anticoagulation due to the patient's PMH of GERD and the associated risk of GI bleeding. The patient was noted to be hypertensive throughout her hospilization, lisinopril was added to her regimen for better BP control. An MRI of the R shoulder was completed, which showed a partial thickness tear of the rotator cuff. Dr. Vargas, Orthopedic Surgery, evaluated the patient's shoulder (see consult note), he stated the appropriate treatment would be to continue conservative management including anti-inflammatories if tolerated, and/or physical therapy. The patient was discharged home on hospital day #2 Physical Exam Vital Signs: Temp Pulse Resp BP Pulse Ox 98.3 F 61 18 139/51 H 100 04/18/18 16:13 04/18/18 16:13 04/18/18 16:13 04/18/18 16:13 04/18/18 16:13 Results Laboratory Results: 04/18/18 08:34 04/18/18 08:34 04/17/18 04/17/18 04/17/18 16:33 20:00 20:00 Creatine Kinase 126 CK-MB (CK-2) 0.91 Troponin I < 0.012 < 0.012 NT-Pro-B Natriuret Pep 04/18/18 04/18/18 04/18/18 01:23 01:23 08:34 Creatine Kinase 95 CK-MB (CK-2) 0.69 Troponin I < 0.012 NT-Pro-B Natriuret Pep 78 04/18/18 04/18/18 08:34 08:34 Creatine Kinase 85 CK-MB (CK-2) 0.55 Troponin I < 0.012 NT-Pro-B Natriuret Pep Impressions: Chest X-Ray 04/17/18 15:47 IMPRESSION: NO ACUTE FINDINGS. Shoulder X-Ray 04/18/18 00:00 IMPRESSION: NO RADIOGRAPHIC EVIDENCE OF ACUTE INJURY. Upper Extremity MRI 04/18/18 00:00 IMPRESSION: Partial-thickness intrasubstance tear anterior distal supraspinatus. No full-thickness tear. More chronic appearing interstitial tears infraspinatus and supraspinatus musculotendinous junction. Status: Imported from PACS Qualifiers - * PATIENT BEING DISCHARGED WITH ANY OF THE FOLLOWING DIAGNOSIS: No Plan Time Spent: Greater than 30 Minutes
== END 2018-04-18 18:18 | disposition home health service (06) ==
LOC: ER 14:55 → OBSVTOIN 19:43 → INTOOBSV 19:43 → EH 19:43 → 4S 21:50
PROVIDERS: ADMIT Emergency Medicine; ATTEND Emergency Medicine
DX: R07.9 Chest pain, unspecified (principal); I48.0 Paroxysmal atrial fibrillation; M75.51 Bursitis of right shoulder; M75.101 Unspecified rotator cuff tear or rupture of right shoulder, not specified as traumatic; I10 Essential (primary) hypertension; E78.5 Hyperlipidemia, unspecified; E11.9 Type 2 diabetes mellitus without complications; K21.9 Gastro-esophageal reflux disease without esophagitis; I83.93 Asymptomatic varicose veins of bilateral lower extremities; E87.5 Hyperkalemia; M25.512 Pain in left shoulder; Z79.01 Long term (current) use of anticoagulants; Z79.899 Other long term (current) drug therapy; Z86.711 Personal history of pulmonary embolism; Z90.49 Acquired absence of other specified parts of digestive tract; Z82.49 Family history of ischemic heart disease and other diseases of the circulatory system; Z79.84 Long term (current) use of oral hypoglycemic drugs
CPT/HCPCS: 93005; 99285; 36415 ×2; 84439; 82553 ×2; 82550 ×2; 83690; 83735; 84132; 84443; 85025; 85027; 80048; 80053; 81001; 84484 ×2; 84481; 83036; 80061; 83880; 93017; 73221; 71045; 73030; 78452; 93010; A9500; J2785; A9270 ×8; J3490; Q9969; G0378

== ENCOUNTER 2018-06-27 04:59 | Emergency (ER) | payer MEDICARE, OTHER ==
[2018-06-27] MEDS ORDERED: DIPHENHYDRAMINE HCL 50 MG/ML VIAL IV ONE (07:37)
[2018-06-27] MEDS ORDERED: FAMOTIDINE INJ/PF 20 MG/2 ML SDV IV ONE (07:37)
--- NOTE | 2018-06-27 07:43 | ER Document Report ---
ED Extremity Problem, Upper - General Chief Complaint: Arm Problem Stated Complaint: LEFT ARM SWELLING Time Seen by Provider: 06/27/18 07:20 Primary Care Provider: GASTON PEREA MD [Primary Care Provider] - Follow up as needed Mode of Arrival: Ambulatory Information source: Patient Notes: 78-year-old female patient comes emergency room complaining of swelling and itching and redness to her left elbow and arm. She states yesterday morning she woke up with itching to her left flank back region, and then it went into her left arm and elbow region. She also reports she is noticed some itching to the right abdomen today. She takes Eliquis for past history of pulmonary embolus in 2010. She is on lisinopril since early April of this year, and amlodipine for her blood pressure. There is been no oral or facial swelling. TRAVEL OUTSIDE OF THE [place] IN LAST 30 DAYS: No - Related Data Allergies/Adverse Reactions: No Known Allergies Allergy (Verified 06/27/18 05:08) Past Medical History - General Information source: Patient - Social History Smoking Status: Never Smoker Cigarette use (# per day): No Chew tobacco use (# tins/day): No Smoking Education Provided: No Frequency of alcohol use: None Drug Abuse: None Occupation: Retired Lives with: Family Family History: CAD, Hypertension Patient has suicidal ideation: No Patient has homicidal ideation: No - Past Medical History Cardiac Medical History: Reports: Hx Atrial Fibrillation, Hx Hypercholesterolemia, Hx Hypertension, Hx Pulmonary Embolism Endocrine Medical History: Reports: Hx Diabetes Mellitus Type 2 Musculoskeletal Medical History: Reports Hx Arthritis - Chronic right shoulder pain her doctor told her was arthritis. Psychiatric Medical History: Reports: None Past Surgical History: Reports: Hx Appendectomy, Hx Hysterectomy, Hx Tonsillectomy Physical Exam - Vital signs Vitals: Temp Pulse Resp BP Pulse Ox 98.1 F 77 20 154/69 H 98 06/27/18 05:09 06/27/18 05:09 06/27/18 05:09 06/27/18 05:09 06/27/18 05:09 - Notes Notes: PHYSICAL EXAMINATION: GENERAL: Well-appearing, well-nourished and in no acute distress. HEAD: Atraumatic, normocephalic. EYES: Pupils equal round and reactive to light, extraocular movements intact, sclera anicteric, conjunctiva are normal. ENT: nares patent, oropharynx clear without exudates. Moist mucous membranes. NECK: Normal range of motion, supple without lymphadenopathy LUNGS: Breath sounds clear to auscultation bilaterally and equal. No wheezes rales or rhonchi. HEART: Regular rate and rhythm without murmurs ABDOMEN: Soft, nontender, normoactive bowel sounds. No guarding, no rebound. No masses appreciated. No rashes or erythema noted. BACK: No areas of rash or erythema noted. EXTREMITIES: The left elbow region has some erythema and edema posteriorly and to the anterior proximal forearm. She states the area does itch. NEUROLOGICAL: Cranial nerves grossly intact. Normal speech, normal gait. Normal sensory, motor, and reflex exams. PSYCH: Normal mood, normal affect. SKIN: Warm, Dry, normal turgor, no rashes or lesions noted. Course - Re-evaluation Re-evalutation: 06/27/18 09:05 After the Benadryl and Pepcid IV, the patient reports that the itching does seem better. The overall appearance of the arm with the swelling from the upper arm down just past the elbow does not appear to have really changed any. There is still erythema, there is still swelling, it is not particularly tender, while it remains a little warm. The lab work does not suggest an ongoing cellulitis, the overall appearance suggests an insect bite with local allergic reaction and possibly a developing cellulitis at this point. I will cover the patient with antibiotics, antihistamines, and have her elevate the arm to help reduce her swelling. - Vital Signs Vital signs: Temp Pulse Resp BP Pulse Ox 98.1 F 77 20 154/69 H 98 06/27/18 05:09 06/27/18 05:09 06/27/18 05:09 06/27/18 05:09 06/27/18 05:09 - Laboratory Result Diagrams: 06/27/18 07:45 06/27/18 07:45 Laboratory results interpreted by me: 06/27/18 06/27/18 07:45 07:45 Hgb 11.6 L Hct 35.5 L MCH 26.7 L Eosinophils % 6.9 H Sodium 145.7 H Chloride 111 H Glucose 118 H Discharge - Discharge Clinical Impression: Allergic reaction Qualifiers: Encounter type: initial encounter Qualified Code(s): T78.40XA - Allergy, unspecified, initial encounter Cellulitis Qualifiers: Site of cellulitis: extremity Site of cellulitis of extremity: upper extremity Laterality: left Qualified Code(s): L03.114 - Cellulitis of left upper limb Condition: Stable Disposition: HOME, SELF-CARE Additional Instructions: Acute Allergic Reaction: Your symptoms appear to be due to an allergic reaction. Allergy can cause hives, swelling of the hands, feet, and face, hoarseness, and difficulty swallowing or breathing. It may be due to exposure to medication, animal dander, foods, infection, or insect bites. Medication is a common cause, even when prior use of this same medication caused no problems. Acute treatment may include adrenalin and antihistamines. Usually, the specific allergic agent can't be identified unless repeated episodes occur. Home treatment includes the following: (1) Stop any suspicious medications. This will be discussed with you. (2) Oral antihistamines for the next four to five days. Example, diphenhydramine (Benadryl) every four hours. (3) You may also use cimetidine (Tagamet), ranitidine (Zantac), or famotidine (Pepcid) every four hours if diphenhydramine is not controlling itching and hives. (4) Avoid aspirin until the hives completely disappear. (5) Avoid hot bahs or showers until the hives are completely gone. Call the doctor if faintness, difficulty swallowing, tightness in the chest, or wheezing occurs. Cellulitis: I am concerned that you are developing an infection of your skin and underlying soft tissues called cellulitis. This is due to bacteria, which can enter through any break in the skin. Untreated, cellulitis will usually worsen. Antibiotics are required. Elevation of the involved area is recommended. You should start getting better within 24 to 36 hours. Most infections respond quickly to the right medication. Follow-up care is important, however, to check for abscess (boil) formation, unsuspected foreign body, or resistant infection. If you develop fever, chills, or if the area of infection is becoming rapidly more swollen or painful, call the doctor at once. I suspect that your initial swelling and itching is due to an allergic reaction to an insect bite. I am concerned that you may be developing a cellulitis in the same area of your left arm. Take [id number] Pepcid every 4 hours for the next few days. You may also take Benadryl every 4 hours for itching if the Pepcid does not control the itching. Take the cephalexin antibiotic as prescribed. Elevate your left arm up above your heart is much as possible to help reduce the swelling. Follow-up with your primary care provider tomorrow to reevaluate your arm redness and swelling. RETURN TO THE EMERGENCY ROOM IF ANY NEW OR WORSENING SYMPTOMS. Prescriptions: Cephalexin Monohydrate [Keflex 500 mg Capsule] 500 mg PO QID #28 capsule Referrals: GASTON PEREA MD [Primary Care Provider] - Follow up tomorrow
[2018-06-27 08:02] LABS: ABSOLUTE EOSINOPHILS # (AUTO) 0.3 10^3/uL (0.0-0.6); ABSOLUTE LYMPHOCYTES (AUTO) 1.7 10^3/uL (0.5-4.7); ABSOLUTE MONOCYTES (AUTO) 0.4 10^3/uL (0.1-1.4); ABSOLUTE NEUT (AUTO) 2.5 10^3/uL (1.7-8.2); BASOPHILS % (AUTO) 0.7 % (0-2); EOSINOPHILS % (AUTO) 6.9 % (0-6); HEMATOCRIT 35.5 % (36.0-47.0); HEMOGLOBIN 11.6 g/dL (12.0-15.5); LYMPHOCYTES % (AUTO) 35.2 % (13-45); MEAN CORPUSCULAR HEMOGLOBIN 26.7 pg (27.0-33.4); MEAN CORPUSCULAR HGB CONC 32.8 g/dL (32.0-36.0); MEAN CORPUSCULAR VOLUME 82 fl (80-97); MONOCYTES % (AUTO) 7.2 % (3-13); PLATELET COUNT 214 10^3/uL (150-450); RED BLOOD COUNT 4.35 10^6/uL (3.72-5.28); RED CELL DISTRIBUTION WIDTH 13.2 % (11.5-14.0); TOTAL CELLS COUNTED % (AUTO) 100 %; WHITE BLOOD COUNT 4.9 10^3/uL (4.0-10.5)
[2018-06-27 08:14] LABS: ALANINE AMINOTRANSFERASE 31 U/L (9-52); ALBUMIN 4.3 g/dL (3.5-5.0); ALKALINE PHOSPHATASE 126 U/L (38-126); ANION GAP 9 (5-19); ASPARTATE AMINO TRANSFERASE 24 U/L (14-36); BILIRUBIN,DIRECT 0.2 mg/dL (0.0-0.4); BILIRUBIN,TOTAL 0.5 mg/dL (0.2-1.3); BLOOD UREA NITROGEN 12 mg/dL (7-20); CARBON DIOXIDE 26 mmol/L (22-30); CHLORIDE 111 mmol/L (98-107); GLUCOSE 118 mg/dL (75-110); POTASSIUM 4.1 mmol/L (3.6-5.0); SODIUM 145.7 mmol/L (137-145); TOTAL PROTEIN 7.5 g/dL (6.3-8.2)
[2018-06-27] MEDS ORDERED: CEPHALEXIN 500 MG CAPSULE PO ONE (09:05)
[2018-06-27 09:43] VITALS: BP 133/54
== END 2018-06-27 09:42 | disposition home or self-care (01) ==
LOC: ER 04:59
DX: M79.89 Other specified soft tissue disorders (principal); Z79.01 Long term (current) use of anticoagulants; Z86.711 Personal history of pulmonary embolism; Z79.899 Other long term (current) drug therapy; I10 Essential (primary) hypertension; E11.9 Type 2 diabetes mellitus without complications
CPT/HCPCS: 99283; 96374; 96375; 36415; 87040; 85025; 80053; A9270; J1200; S0028

== ENCOUNTER 2018-07-01 17:57 | Emergency (ER) | payer MEDICARE, OTHER ==
[2018-07-01] MEDS ORDERED: DIPHENHYDRAMINE HCL 25 MG CAPSULE PO ONE (19:59)
--- NOTE | 2018-07-01 20:03 | ER Document Report ---
ED Skin Rash/Insect Bite/Abscs - General Chief Complaint: Skin Problem Stated Complaint: SKIN ISSUE Time Seen by Provider: 07/01/18 19:51 Primary Care Provider: GASTON PEREA MD [Primary Care Provider] - Follow up as needed Mode of Arrival: Ambulatory Information source: Patient TRAVEL OUTSIDE OF THE [place] IN LAST 30 DAYS: No - HPI Patient complains to provider of: Skin rash/lesion Notes: Patient here with complaints of rash. Patient was seen here 4 days ago with possible allergic reaction to the bilateral forearms and side. She was placed on Pepcid and Keflex. She states that the areas continued to itch and now she is having some swelling to her right earlobe. No pain. No fever. No dif ficulty breathing or swallowing. No nausea, vomiting, diarrhea. No chest pain or shortness of breath. She denies any abdominal pain. No headache. No blurred or loss vision. States that the rash is itchy, nontender. - Related Data Allergies/Adverse Reactions: No Known Allergies Allergy (Verified 06/27/18 05:08) Past Medical History - Social History Smoking Status: Never Smoker Chew tobacco use (# tins/day): No Drug Abuse: None Family History: CAD, Hypertension Patient has suicidal ideation: No Patient has homicidal ideation: No - Past Medical History Cardiac Medical History: Reports: Hx Atrial Fibrillation, Hx Hypercholesterolemia, Hx Hypertension, Hx Pulmonary Embolism Denies: Hx Heart Attack Pulmonary Medical History: Denies: Hx Asthma, Hx COPD Neurological Medical History: Denies: Hx Seizures Endocrine Medical History: Reports: Hx Diabetes Mellitus Type 2 Renal/ Medical History: Denies: Hx Peritoneal Dialysis GI Medical History: Denies: Hx Hiatal Hernia Musculoskeletal Medical History: Reports Hx Arthritis - Chronic right shoulder pain her doctor told her was arthritis. Past Surgical History: Reports: Hx Appendectomy, Hx Hysterectomy, Hx Tonsillectomy. Denies: Hx Mastectomy Review of Systems - Review of Systems -: Yes All other systems reviewed and negative Physical Exam - Vital signs Vitals: Temp Pulse Resp BP Pulse Ox 98.7 F 68 18 126/75 H 98 07/01/18 18:17 07/01/18 18:17 07/01/18 18:17 07/01/18 18:17 07/01/18 18:17 - Notes Notes: GENERAL: alert, cooperative, nontoxic, no distress. HEAD: normocephalic, atraumatic EYES: conjunctiva pink without discharge, no external redness or swelling. EARS: no external swelling, no external redness NOSE: atraumatic, no external swelling MOUTH/THROAT: mucous membranes moist and pink, posterior pharynx without erythema, swelling, exudate. No trismus or drooling. NECK: soft, supple, full range of motion, no meningismus. CHEST: no distress, lungs clear and equal throughout. No wheezing, rales, rhonchi. CARDIAC: regular rate and rhythm, no murmur, normal capillary refill, normal pulses. No peripheral edema noted. ABDOMEN: Soft, nontender. BACK: full range of motion, no CVA tenderness. EXTREMITIES: full range of motion of all extremities. No redness, no swelling. NEURO: alert and oriented x 3, no focal deficits, full range of motion of all extremities. PYSCH: appropriate mood, affect. Patient is cooperative. SKIN: pink, warm, dry, red indurated area with some mild surrounding redness to the bilateral forearms, posterior neck. No drainage. No fluctuance. Nontender to palpation. Right earlobe noted to be slightly swollen. No vesicles, no petechiae. Course - Re-evaluation Re-evalutation: 07/01/18 20:12 Patient is nontoxic-appearing with stable vitals. Patient is here with complaints of rash. She was seen here 4 days ago with the same rash. She was started on Pepcid and Keflex. She states that the rash seems to be continuing to itch. She has some swelling to the right earlobe. No pain. No fever. No signs of anaphylaxis. No signs of abscess. Patient appears to potentially have had some insect bites with some sort of localized allergic reaction. Recommended that she take an H1 radha such as Claritin, Benadryl, Monika or Zyrtec. I have prescribed her a topical steroid. She is instructed to follow- up with her primary care doctor at the next available appointment for reevaluation and to return to the emergency department for worsening symptoms, high fever, difficulty breathing or swallowing, persistent vomiting, or for any further concerns. The patient's emergency department workup and current diagnosis were explained to the patient and or family. Follow-up instructions were provided. Medications if prescribed were discussed. Instructions for when to return to the emergency department including specific worrisome symptoms were discussed with the patient and/or family. - Vital Signs Vital signs: Temp Pulse Resp BP Pulse Ox 98.1 F 65 18 136/75 H 97 07/01/18 20:04 07/01/18 20:04 07/01/18 20:04 07/01/18 20:04 07/01/18 20:04 Discharge - Discharge Clinical Impression: Allergic reaction Qualifiers: Encounter type: subsequent encounter Qualified Code(s): T78.40XD - Allergy, unspecified, subsequent encounter Condition: Stable Disposition: HOME, SELF-CARE Instructions: Acute Allergic Reaction ([facility]) Additional Instructions: Continue taking her medications from your previous visit. Start taking an [id number] antihistamine such as Benadryl or Claritin or Zyrtec or Monika to help with the itching. Use the cream as prescribed. Apply cool compresses to the area. Follow-up with your doctor in the next 24 to 48 hours for recheck. Follow-up sooner for worsening rash, high fever, pain, difficulty breathing or swallowing, persistent vomiting, or for any further concerns. Prescriptions: Hydrocortisone [Hydrocortisone 0.5% Cream 28.35 Gm] 1 applic TP BID #2 tube Forms: Elevated Blood Pressure Referrals: GASTON PEREA MD [Primary Care Provider] - Follow up as needed
[2018-07-01 20:06] VITALS: BP 136/75
== END 2018-07-01 20:08 | disposition home or self-care (01) ==
LOC: ER 17:57
DX: T78.40XA Allergy, unspecified, initial encounter (principal); R21 Rash and other nonspecific skin eruption; L29.9 Pruritus, unspecified; R22.0 Localized swelling, mass and lump, head; X58.XXXA Exposure to other specified factors, initial encounter; I10 Essential (primary) hypertension; E11.9 Type 2 diabetes mellitus without complications
CPT/HCPCS: 99283; A9270

== ENCOUNTER 2018-07-08 19:00 | Emergency (ER) | payer MEDICARE, OTHER ==
[2018-07-08] MEDS ORDERED: PREDNISONE 10 MG TABLET PO ONE (20:45)
[2018-07-08] MEDS ORDERED: FAMOTIDINE 20 MG TABLET PO ONE (20:46)
[2018-07-08] MEDS ORDERED: DIPHENHYDRAMINE HCL 25 MG CAPSULE PO ONE (20:47)
--- NOTE | 2018-07-08 20:52 | ER Document Report ---
Addendum entered and electronically signed by SHILO MORENO PA-C 07/08/18 21:45: Discharge - Discharge Clinical Impression: Allergic rash present on examination Condition: Good Disposition: HOME, SELF-CARE Instructions: Acute Urticaria ([facility]) Additional Instructions: Please continue taking the steroids that you have in the bottle that is wrapped up by the paper instructions. Suggest that she follow-up with the vaccine customer representative to have this checked. Prescriptions: Famotidine [Pepcid 20 mg Tablet] 20 mg PO BID #10 tablet Hydroxyzine HCl [Atarax 25 mg Tablet] 1 tab PO QID #20 tablet Referrals: GASTON PEREA MD [Primary Care Provider] - Follow up as needed MIC BYRNE DO [ACTIVE STAFF] - Follow up tomorrow Original Note: ED General - General Chief Complaint: Rash Stated Complaint: RASH Time Seen by Provider: 07/08/18 20:45 Primary Care Provider: GASTON PEREA MD [Primary Care Provider] - Follow up as needed Mode of Arrival: Ambulatory Information source: Patient TRAVEL OUTSIDE OF THE [place] IN LAST 30 DAYS: No - HPI Patient complains to provider of: Acute onset itchy rash Onset: Last week Onset/Duration: Sudden Quality of pain: No pain Severity: Mild Associated symptoms: None Exacerbated by: Denies Relieved by: Denies Similar symptoms previously: No Recently seen / treated by doctor: No Notes: 78-year-old -[place] female coming in today with acute onset itchy hive- like rash. Does not affect the mouth or throat or lips or tongue. This will be her second or third ER visit for this. Also seen her primary care. Currently on Medrol Dosepak. Was planning on seeing an vaccine customer representative but saw her primary doctor instead - Related Data Allergies/Adverse Reactions: No Known Allergies Allergy (Verified 07/08/18 19:01) Past Medical History - General Information source: Patient - Social History Smoking Status: Smoker,Current Status Unk Family History: Reviewed & Not Pertinent, CAD, Hypertension - Past Medical History Cardiac Medical History: Reports: Hx Atrial Fibrillation, Hx Hypercholesterolemia, Hx Hypertension, Hx Pulmonary Embolism Denies: Hx Heart Attack Pulmonary Medical History: Denies: Hx Asthma, Hx COPD Neurological Medical History: Denies: Hx Seizures Endocrine Medical History: Reports: Hx Diabetes Mellitus Type 2 Renal/ Medical History: Denies: Hx Peritoneal Dialysis GI Medical History: Denies: Hx Hiatal Hernia Musculoskeletal Medical History: Reports Hx Arthritis - Chronic right shoulder pain her doctor told her was arthritis. Past Surgical History: Reports: Hx Appendectomy, Hx Hysterectomy, Hx Tonsillectomy. Denies: Hx Mastectomy Review of Systems - Review of Systems Notes: Constitutional: No fevers. No chills. EENT: No eye redness. No eye pain. No ear pain. No sore throat. Cardiovascular: No chest pain. No palpitations. Respiratory: No cough. No shortness of breath. No respiratory distress. Gastrointestinal: No abdominal pain. No nausea, vomiting, or diarrhea. Genitourinary: Atraumatic. No lesions. No pain. No discharge. Musculoskeletal: Atraumatic. No swelling. No deformities. Skin: Positive for itchy rash Lymphatic: No swollen lymph nodes. Neurologic: No headache. No syncope. Psychiatric: No suicidal or homicidal ideation. Physical Exam - Vital signs Vitals: Temp Pulse Resp BP Pulse Ox 98 F 74 16 135/54 H 100 07/08/18 20:01 07/08/18 20:01 07/08/18 20:01 07/08/18 20:01 07/08/18 20:01 - Notes Notes: General: Well-developed, well-nourished. In no acute distress. Non-toxic appearing. Cardiac: Well-perfused. Regular rate and rhythm. No murmurs, rubs, or gallops. Pulmonary: No respiratory distress. No cyanosis. Bilateral lung fiels are clear to auscultation. Abdominal: Non-distended. Non-rigid. Bowels sounds are present in all four quadrants. No guarding or rebound. HEENT: Head is atraumatic. Conjunctivae not reddened. No tearing. PERRL. EOMI. Orbits atraumatic. No periorbital swelling or erythema. Oropharynx is without erythema, swelling, or exudates. No oropharyngeal swelling no lip tongue or mouth floor erythema or swelling Neck: Supple. No adenopathy. No meningismus. Dermatologic: Multiple diffuse erythematous raised patches to various parts of the body. Chest: Atraumatic. No chest wall tenderness to palpation. Musculoskeletal: Moves all extremities well. No range of motion deficits. no muscular or joint tenderness. No paraspinal muscle tenderness. no midline spinal tenderness or step-off. Genitourinary: Examination deferred Neurologic: No gross neurologic deficits. Psychiatric: Normal mood. Course - Re-evaluation Re-evalutation: 07/08/18 20:52 Sounds like patient needs to see an vaccine customer representative. This is multiple visits to the ER with no full resolution. Also saw her primary. Suggest that she see the vaccine customer representative and/or greenhouse transplanter for more comprehensive recheck. - Vital Signs Vital signs: Temp Pulse Resp BP Pulse Ox 98 F 74 16 135/54 H 100 07/08/18 20:01 07/08/18 20:01 07/08/18 20:01 07/08/18 20:01 07/08/18 20:01 Discharge - Discharge Clinical Impression: Allergic rash present on examination Condition: Good Disposition: HOME, SELF-CARE Instructions: Acute Urticaria ([facility]) Additional Instructions: Please continue taking the steroids that you have in the bottle that is wrapped up by the paper instructions. Suggest that she follow-up with the vaccine customer representative to have this checked. Prescriptions: Famotidine [Pepcid 20 mg Tablet] 20 mg PO BID #10 tablet Hydroxyzine HCl [Atarax 25 mg Tablet] 1 tab PO QID #20 tablet Referrals: GASTON PEREA MD [Primary Care Provider] - Follow up as needed
[2018-07-08 21:27] VITALS: BP 145/61
== END 2018-07-08 21:49 | disposition home or self-care (01) ==
LOC: ER 19:00
DX: T78.40XA Allergy, unspecified, initial encounter (principal); R21 Rash and other nonspecific skin eruption; X58.XXXA Exposure to other specified factors, initial encounter; I10 Essential (primary) hypertension; E11.9 Type 2 diabetes mellitus without complications
CPT/HCPCS: 99282; A9270 ×3; J7512